=== PATIENT | female | born 1940 | race Caucasian/White ===

== ENCOUNTER 2017-09-01 08:56 | Inpatient (IN) | payer MEDICARE, OTHER ==
[2017-09-01] MEDS ORDERED: Morphine VIAL* 4 MG/ML VIAL (1 ml vial) IV ONE ×2 (09:23→11:37)
[2017-09-01] MEDS ORDERED: Metoclopramide IV* 5 MG/ML 2 ML VIAL IV ONE (09:28)
--- NOTE | 2017-09-01 10:05 | RAD ---
HISTORY: Severe back pain, fall COMPARISONS: None TECHNIQUE: Multiple contiguous axial CT scans were obtained of the thoracic and lumbar spine without intravenous contrast, with coronal and sagittal multiplanar reformations. FINDINGS: SPINAL CANAL: Evaluation of the central canal is limited on CT technique; however, there is no obvious canalicular mass or epidural hemorrhage. ALIGNMENT: The alignment is normal. VERTEBRAL BODIES: There is mild depression of superior endplate of L1 with minimal osseous retropulsion lucent line paralleling the superior endplate consistent with an acute/subacute compression fracture. There is diffuse osteopenia. There is multilevel anterolateral marginal osteophyte formation. JOINTS: There is osteoarthritis of the costovertebral articulations and of the facet joints of the lumbar spine.. MUSCULATURE: Unremarkable INTERVERTEBRAL DISCS: There is diffuse loss of intervertebral disc height throughout the spine. AXIAL IMAGES: There are multilevel calcified disc protrusion versus posterior osteophytes of the mid third of the thoracic spine. There is a broad-based disc bulge at L2-L3. There is no osseous neural foraminal area or central canal stenosis. At L3-L4, there is broad-based disc bulge. There is mild narrowing of central canal. At L4-L5, there is broad-based disc bulge with mild to moderate narrowing of the central canal. L5-S1, there is severe left and mild right neuroforaminal narrowing. There is no osseous central canal stenosis. SOFT TISSUES: There is atherosclerosis of the aorta. OTHER: None IMPRESSION: 1. ACUTE/SUBACUTE COMPRESSION FRACTURE OF L1 WITHOUT OSSEOUS RETROPULSION. 2. OSTEOPENIA. 3. DEGENERATIVE DISC DISEASE AND OSTEOARTHRITIS, DESCRIBED ABOVE.
[2017-09-01 11:14] LABS: Hematocrit 41 % (35-47); Hemoglobin 14.1 g/dl (12.0-16.0); Mean Corpuscular HGB Conc 34 g/dl (31-36); Mean Corpuscular Hemoglobin 32 pg (27-31); Mean Corpuscular Volume 94 fL (80-97); Mean Platelet Volume 6.7 um3 (7.4-10.4); Platelet Count 171 10^3/ul (150-450); Red Blood Count 4.39 10^6/ul (4.0-5.4); Red Cell Distribution Width 14 % (10.5-15); White Blood Count 6.6 10^3/ul (3.5-10.8)
--- NOTE | 2017-09-01 11:14 | ED ---
Back Pain - HPI Summary HPI Summary: Patient is a 77-year-old female with a history of mid and low back pain which is chronic. Also history of right hip pain. She has been seeing a physician for steroid injections of the back and has an appointment tomorrow for a steroid injection of the hip. However 3 nights ago she presented to sit down and fell off the chair resulting in worsening back pain. Tonight she states upon awakening this morning she was unable to ambulate and endorses 10/10 back pain over the past 3 days. She has needed the help of her daughter at home. - History of Current Complaint Chief Complaint: EDBackInjuryPain Stated Complaint: LOW BACK AND HIP PAIN Time Seen by Provider: 09/01/17 08:58 Hx Obtained From: Patient Onset/Duration: Gradual Onset Onset/Duration: Started Hours Ago Timing: Constant Back Pain Location: Is Discrete @ - low back pain Pain Intensity: 10 - Allergies/Home Medications Allergies/Adverse Reactions: Allergies Allergy/AdvReac Type Severity Reaction Status Date / Time aspirin Allergy Anaphylatic Verified 09/01/17 09:00 Shock Beta-Blockers Allergy Anaphylatic Verified 09/01/17 09:00 (Beta-Adrenergic Bloc Shock NSAIDS (Non-Steroidal Allergy Anaphylatic Verified 09/01/17 09:00 Anti-Inflamma Shock Home Medications: Home Medications Albuterol inh POWDER (NF) [Proair Respiclick] 1 puff INH Q6HR PRN 09/01/17 [ History Confirmed 09/01/17] Anastrozole (NF) [Arimidex (NF)] 1 mg PO QAM 09/01/17 [History Confirmed ] Budesonide/Formote 160/4.5(NF) [Symbicort 160/4.5 (NF)] 2 puff INH BID 09/01/17 [History Confirmed 09/01/17] Calcitriol CAP* [Rocaltrol CAP*] 0.25 mcg PO QAM 09/01/17 [History Confirmed ] Calcium Carbonate [Calcium] 1,000 mg PO QAM 09/01/17 [History Confirmed 09/01/17 ] Cetirizine* [ZyrTEC 10 MG TAB*] 10 mg PO QAM 09/01/17 [History Confirmed ] Fenofibrate(NF) [Tricor(NF)] 145 mg PO QPM 09/01/17 [History Confirmed 09/01/17] Furosemide TAB* [Lasix TAB*] 20 mg PO QAM 09/01/17 [History Confirmed 09/01/17] Levothyroxine TAB* [Synthroid TAB*] 175 mcg PO MOTUWETHFRSA 09/01/17 [History Confirmed 09/01/17] Levothyroxine TAB* [Synthroid TAB*] 350 mcg PO BARRON 09/01/17 [History Confirmed ] Montelukast Sodium TAB* [Singulair TAB*] 10 mg PO DAILY 09/01/17 [History Confirmed 09/01/17] Multivitamins/Minerals TAB* [Theragran/minerals TAB*] 1 tab PO DAILY 09/01/17 [ History Confirmed 09/01/17] [place]-3 Fatty Acids (Nf) [Fish Oil (NF)] 1,000 mg PO DAILY 09/01/17 [History Confirmed 09/01/17] Omeprazole CAP* [Prilosec CAP* 20 MG] 20 mg PO QAM 09/01/17 [History Confirmed 09/01/17] QUEtiapine TAB* [Seroquel 100 MG *] 100 mg PO BEDTIME 09/01/17 [History Confirmed 09/01/17] Ramipril CAP* [Altace CAP*] 1.25 mg PO QAM 09/01/17 [History Confirmed 09/01/17] Sertraline* [Zoloft*] 100 mg PO BID 09/01/17 [History Confirmed 09/01/17] Simvastatin (NF) [Zocor (NF)] 40 mg PO QPM 09/01/17 [History Confirmed 09/01/17] Tiotropium CAP.INH* [Spiriva CAP.INH*] 2 cap.inh INH 1200 09/01/17 [History Confirmed 09/01/17] Zolpidem TAB* [Ambien TAB*] 10 mg PO BEDTIME PRN 09/01/17 [History Confirmed 07/16] busPIRone TAB* [Buspar TAB *] 15 mg PO BID 09/01/17 [History Confirmed 09/01/17] risperiDONE [Risperidone Odt] 0.5 mg PO QAM 09/01/17 [History Confirmed 09/01/17 ] PMH/Surg Hx/FS Hx/Imm Hx Previously Healthy: Yes - she said she is just now - Surgical History Surgery Procedure, Year, and Place: shoulder, hip - Immunization History Hx Pertussis Vaccination: No Immunizations Up to Date: Yes Infectious Disease History: No Infectious Disease History: Denies: Traveled Outside the [place] in Last 30 Days - Social History Occupation: Unemployed Lives: Alone Alcohol Use: None Alcohol Amount: 1-2 drinks/daily Hx Substance Use: No Substance Use Type: Reports: None Smoking Status (MU): Former Smoker Review of Systems Constitutional: Negative Negative: Fever, Chills, Fatigue Negative: Palpitations, Chest Pain Negative: Shortness Of Breath, Cough Genitourinary: Negative Positive: no symptoms reported, see HPI Positive: Arthralgia, Myalgia Skin: Negative Neurological: Negative All Other Systems Reviewed And Are Negative: Yes Physical Exam Triage Information Reviewed: Yes Vital Signs On Initial Exam: Initial Vitals Temp Pulse Resp BP Pulse Ox 96.9 F 102 22 144/91 95 09/01/17 08:57 09/01/17 08:57 09/01/17 08:57 09/01/17 08:57 09/01/17 08:57 Vital Signs Reviewed: Yes Appearance: Positive: Well-Appearing, Well-Nourished Skin: Positive: Warm, Skin Color Reflects Adequate Perfusion Head/Face: Positive: Normal Head/Face Inspection Eyes: Positive: EOMI, MELECIO, Conjunctiva Clear Neck: Positive: Supple, Nontender, No Lymphadenopathy Respiratory/Lung Sounds: Positive: Clear to Auscultation, Breath Sounds Present Cardiovascular: Positive: RRR, Pulses are Symmetrical in both Upper and Lower Extremities Musculoskeletal: Positive: Pain @ - low back pain - acute on chronic Neurological: Positive: Speech Normal Psychiatric: Positive: Normal, Affect/Mood Appropriate AVPU Assessment: Alert Diagnostics - Vital Signs Vital Signs Temp Pulse Resp BP Pulse Ox 09/01/17 10:23 96 146/85 94 09/01/17 10:00 91 91 09/01/17 09:53 91 128/92 91 09/01/17 09:48 93 89 09/01/17 09:32 17 09/01/17 08:57 96.9 F 102 22 144/91 95 - Laboratory Result Diagrams: 09/01/17 10:58 09/01/17 10:58 Lab Statement: Any lab studies that have been ordered have been reviewed, and results considered in the medical decision making process. Back Pain Course/Dx - Course Course Of Treatment: During the course of treatment patient is given for milk grams morphine on arrival and CT thoracic and lumbar obtained. Acute /subacute compression fracture of L1 without osseous retropulsion. Osteopenia. Degenerative disc disease and osteoarthritis, as described above. Discussed results with patient. Patient continues to be unable to ambulate. Given 4 mg morphine again and discussed with hospitalist who agrees to admit due to unable to ambulate. - Diagnoses Provider Diagnoses: L1 vertebral fracture Discharge - Sign-Out/Discharge Documenting (check all that apply): Discharge/Admit/Transfer - Discharge Plan Condition: Stable Disposition: ADMITTED TO [facility] Referrals: Lisandro Hayden MD [Primary Care Provider] - - Billing Disposition and Condition Condition: STABLE Disposition: Admitted to [facility]
[2017-09-01 11:22] LABS: INR 0.88 (0.77-1.02)
[2017-09-01 11:29] LABS: EGFR Non-African American 82.3 (>60)
[2017-09-01] MEDS ORDERED: Ondansetron 40 MG VIAL* 2 MG/ML 20 ML VIAL IV PRN (11:30)
[2017-09-01] MEDS ORDERED: Albuterol 2.5 MG/3 ML NEB.SOL* (0.083%) INH PRN (11:30)
[2017-09-01] MEDS ORDERED: Al Hydrox/Mg Hydrox/Simet LIQ* 30 ML UDC PO PRN (11:30)
[2017-09-01] MEDS ORDERED: Acetaminophen TAB* 325 MG PO PRN (11:30)
[2017-09-01] MEDS ORDERED: NS 0.9% 1000 ML* 1,000 ML IV ONE (11:35)
[2017-09-01] MEDS ORDERED: Cyclobenzaprine TAB* 10 MG PO PRN (11:53)
[2017-09-01] MEDS ORDERED: Levothyroxine TAB* 175 MCG TAB PO SCH (12:00)
[2017-09-01 12:34] LABS: Urine Appearance Clear; Urine Blood Negative (Negative); Urine Color Yellow; Urine Ketones Trace (Negative); Urine Protein Negative (Negative); Urine Specific Gravity 1.011 (1.010-1.030); Urine Urobilinogen Negative (Negative)
[2017-09-01] MEDS: Morphine VIAL* 4 MG/ML VIAL (1 ml vial) IV PRN ×2 (13:44→19:55)
--- NOTE | 2017-09-01 14:10 | HP ---
AMENDED REPORT NOW INCLUDES COSIGNER DESIGNATION - ESIGNED BEFORE ADJUSTMENTS CC: Dr. Hayden; Dr. Nolasco * ADMISSION HISTORY AND PHYSICAL: DATE OF ADMISSION: 09/01/17 PATIENT OF: Mary Palmer MD * (DICTATED BY RANDY MCCRARY) PRIMARY CARE PHYSICIAN: Dr. Hayden. PRIMARY ORTHOPEDICS: Dr. Nolasco from [facility]. CHIEF COMPLAINT: Back pain. HISTORY OF PRESENT ILLNESS: Mrs. Arevalo is a 77-year-old female who has recently moved to [place] about 2 weeks ago after she resides most of her life at [place]. Her unfortunately last March and she moved to live with her daughter and her . She has a past medical history significant for asthma, remote history of breast cancer for which she is status post radiation therapy, lumpectomy, and currently on remission. She also has history of thyroid cancer for which she had a thyroidectomy and currently taking thyroid hormone replacement. She also had multiple history of joint arthritis as well as orthopedic surgeries as well as chronic back pain and sciatica. She presented to the emergency room today after she sustained a fall at home about 3 days ago. She informed me that she was at home and she tripped on her carpet and fell sitting on her back. She denied any head injury, loss of consciousness, syncope, chest pain, or any other associated symptoms. She was able to get up and walk and noticed increased back pain that has gotten progressively worse over the past 3 days. This morning she got up and she noticed increasing back pain and spasm for which it was very difficult to ambulate and she was brought to the emergency room by her daughter for further evaluation. The patient was seen in the emergency room and was given some morphine which seemed to take the edge off her lower back pain. She had a CT scan of the thoracic and lumbar spine that showed evidence of acute to subacute L1 compression fracture without any bony displacement or disk protrusion. Given her ongoing pain and the findings of the CT scan, we were asked to see the patient for further evaluation and to discuss admission for pain control and physical therapy and potentially to discuss placement in the near future. PAST MEDICAL HISTORY: As mentioned above and significant for: 1. Asthma. 2. History of breast cancer for which she had a lumpectomy followed by radiation. 3. She also has history of osteoarthritis. 4. Chronic back pain. 5. Sciatica. 6. Hypothyroidism. 7. Thyroid cancer. 8. Hypertension. 9. History of alcohol abuse versus dependence. 10. Anxiety and depression. 11. It is to be mentioned that the patient has history of psychiatric unit admission on an emergency basis due to issues with family custody situations and that was back in 2010. PAST SURGICAL HISTORY: Significant for: 1. Breast lumpectomy followed by radiation therapy. 2. Thyroidectomy about 3 years ago. 3. Bilateral knee replacement in the remote past. 4. Left hip surgery. 5. Right shoulder surgery. MEDICATIONS: Her current medications at home are multiple includin. Albuterol inhaler powder 1 puff q.6 hours as needed for shortness of breath. 2. Arimidex 1 mg p.o. q.a.m. 3. Symbicort MDI inhaler 2 puffs b.i.d. 4. BuSpar 15 mg p.o. b.i.d. 5. Rocaltrol 0.25 mcg p.o. q.a.m. 6. Calcium carbonate 1000 mg p.o. q.a.m. 7. Zyrtec 10 mg p.o. q.a.m. 8. TriCor 145 mg p.o. q.p.m. 9. Lasix 20 mg p.o. q.a.m. 10. Synthroid 175 mcg tablets p.o. daily, except for Friday she takes 350 mcg. 11. Singulair 10 mg p.o. daily. 12. Multivitamin with minerals 1 tablet p.o. daily. 13. [place]-3 fish oil 1000 mg p.o. daily. 14. Prilosec 20 mg p.o. daily. 15. Seroquel 100 mg p.o. q.h.s. 16. Altace 1.25 mg p.o. q.a.m. 17. Risperidone 0.5 mg p.o. q.a.m. 18. Zoloft 100 mg p.o. b.i.d. 19. Zocor 40 mg p.o. q.p.m. 20. Spiriva inhaler 2 caps inhaled around noon daily. 21. Ambien 10 mg p.o. q.h.s. as needed for insomnia. ALLERGIES: Multiple including ASPIRIN and other NSAIDs as well as BETA- BLOCKERS. FAMILY HISTORY: She denies any family history of coronary artery disease, diabetes, or cancer. SOCIAL HISTORY: The patient used to live alone after her in March and used to reside at [place] and has recently moved to [facility] 2 weeks ago and now lives with her daughter and . Her daughter, Peyton, is the healthcare proxy for decision making. REVIEW OF SYSTEMS: I have reviewed 14-point review of systems and it was all negative except whatever mentioned positive in the above history of present illness. PHYSICAL EXAMINATION GENERAL: She is an elderly female lying comfortable and still on her bed and appears in no acute distress, but in slight discomfort whenever she moves her back. VITAL SIGNS: Revealed blood pressure of 125/92, temperature of 96.9, pulse of 93, and O2 sat of 95% on room air. HEENT: Head is normocephalic, atraumatic. Sclerae anicteric. PERRLA. EOMs intact. Oropharynx is pink and moist with no exudate. NECK: Supple. Trachea midline. No cervical adenopathy noted. There is a horizontal midline scar from prior thyroidectomy, appears to be well healed. There is no cervical adenopathy noted. LUNGS: Clear to auscultation bilaterally. HEART: Regular rate and rhythm. Normal S1 and S2 without rubs, murmurs, or gallops. BACK: Normal curvature. Exam was very limited due to pain, but there is a definite point tenderness along the lower lumbar spine. No ecchymosis or swelling noted. BREASTS: Deferred at this time. ABDOMEN: Soft, nontender, and nondistended. No hernias, masses, or hepatosplenomegaly. RECTAL: Deferred at this time. NEUROLOGIC: Grossly intact. LABORATORY DATA: The patient had CBC revealing white count of 6600, hemoglobin of 14.1, hematocrit 41, and platelets of 171,000. Her chemical panel with sodium of 138, potassium 3.8, chloride 99, CO2 of 27, BUN 27, creatinine 0.7. Her LFTs were essentially within normal limits and C-reactive protein elevated with value of 86. ACCESSORY DIAGNOSTIC DATA: As mentioned above. The patient had a CT scan of the lumbar and thoracic spine that revealed evidence of subacute to acute compression fracture of L1 without any osseous retropulsion as well as degenerative disk disease and osteoarthritis as noted. ASSESSMENT: A 77-year-old female with a complicated past medical history who recently moved to the area approximately 2 weeks ago who has past medical history of asthma, hypertension, thyroid cancer, breast cancer, and osteoporosis as well as psychiatric history including substance abuse in the past as well as anxiety and depression who presented to the emergency room today after she sustained a trip and fall at home about 3 days ago with worsening back pain on top of chronic back pain and sciatica for years. PLAN: 1. Severe back pain secondary to L1 compression fracture. The patient appears to be comfortable at the time of admission. We will continue her pain management with morphine, Percocet and will introduce Flexeril for occasional muscle spasm. She has an element of chronic back pain and sciatica. However, she has been ambulating around until her recent fall with no evidence of weakness or neurological deficits. She informed me that she had an appointment with Dr. Nolasco at [facility] last week and she had her lower back injection with steroids and she was scheduled to see him tomorrow for a hip injection as well. There was no evidence on the CT for any disk protrusion or neurological involvement, but we will keep observing the patient for the time being and possibly request consultation by Neurosurgery for further assessment. 2. Hypertension. We will continue her Lasix and Altace. 3. Hyperlipidemia. We are going to continue her statin therapy as home meds. 4. History of asthma without exacerbation or pneumonia. We will continue her on home puffers and nebulizers including Symbicort and Spiriva and will add albuterol nebulizer on as needed basis. We will also continue her Zyrtec and Singulair. 5. Anxiety and depression. We will continue her risperidone and Zoloft as prescribed. 6. DVT prophylaxis. Given her history of both breast and thyroid cancer as well as her advanced age, the patient scored 5 points making her highest risk. We will cover her with subcu heparin as well as sequential stocking while she is in bed. We will also obtain PT, OT evaluation in the morning for further assessment and to discuss with the case investigator possible placement if indicated. I have discussed the assessment and plans with my attending, Dr. Palmer, who is in agreement and the patient will be admitted to the medical floor for observation tonight. 7. Code status. The patient is a full code at this time. However, she had expressed desire to be DNR and her daughter will obtain DNR paperwork and have discussion with the patient regarding that decision. TIME SPENT: I have spent 60 minutes admitting this patient and greater than 50 % was on [id number] conversation and discussion of plans of care. RANDY MCCRARY [id number]/CPS #: [id number]
[2017-09-01] MEDS: oxyCODONE/Acetamin 5/325 MG* TAB PO PRN ×2 (15:06→21:53)
[2017-09-01] MEDS: Heparin VIAL(*) 5000 UNITS/ML VIAL (FIVE THOUSAND) SUBCUT SCH ×2 (15:08→21:56)
[2017-09-01] MEDS: Atorvastatin* 20 MG TAB PO SCH (17:39)
[2017-09-01] MEDS: FENOFIBRATE 145 MG PO SCH (17:43)
[2017-09-01] MEDS: Tiotropium CAP.INH* CAP.INH/18 MCG (USE ORDER SET !) INH SCH (20:28)
[2017-09-01] MEDS ORDERED: Mometasone/Formoter 200/5 MDI INH SCH (21:00)
[2017-09-01] MEDS: Zolpidem TAB* 10 MG PO PRN (21:54)
[2017-09-01] MEDS: Sertraline* 100 MG TAB PO SCH (21:55)
[2017-09-01] MEDS: busPIRone TAB* 5 MG PO SCH (21:55)
[2017-09-01] MEDS: QUEtiapine TAB* 100 MG PO SCH (21:55)
[2017-09-01] MEDS: Docusate CAP* 100 MG PO SCH (21:56)
[2017-09-01] MEDS: Levothyroxine TAB* 175 MCG TAB PO SCH (23:27)
[2017-09-02] MEDS: Heparin VIAL(*) 5000 UNITS/ML VIAL (FIVE THOUSAND) SUBCUT SCH ×3 (05:17→22:06)
[2017-09-02] MEDS: oxyCODONE/Acetamin 5/325 MG* TAB PO PRN ×3 (07:34→20:10)
[2017-09-02] MEDS: Omeprazole CAP* 20 MG PO SCH (07:35)
[2017-09-02] MEDS: Furosemide TAB* 20 MG PO SCH (07:36)
[2017-09-02] MEDS: Docusate CAP* 100 MG PO SCH ×2 (07:36→20:10)
[2017-09-02] MEDS: Cetirizine* 10 MG TAB PO SCH (07:39)
[2017-09-02] MEDS: Montelukast Sodium TAB* 10 MG PO SCH (07:39)
[2017-09-02] MEDS: Calcium Carbonate TAB* 1250 MG (CALCIUM 500 MG) PO SCH (07:40)
[2017-09-02] MEDS: Calcitriol CAP* 0.25 MCG PO SCH (07:40)
[2017-09-02] MEDS: CMCS Anastrozole (NF) 1 MG TAB PO SCH (07:41)
[2017-09-02] MEDS: busPIRone TAB* 5 MG PO SCH ×2 (08:05→20:12)
[2017-09-02] MEDS: Morphine VIAL* 4 MG/ML VIAL (1 ml vial) IV PRN ×3 (08:09→16:42)
[2017-09-02] MEDS: Sertraline* 100 MG TAB PO SCH ×2 (08:13→20:10)
[2017-09-02] MEDS: RISPERIDONE 0.5 MG PO SCH (08:14)
[2017-09-02] MEDS: Mometasone/Formoter 200/5 MDI INH SCH ×2 (08:51→21:28)
--- NOTE | 2017-09-02 11:48 | PN ---
Subjective Date of Service: 09/02/17 Interval History: Patient seen and examined. States pain is very minimally better, however, she did work with PT today and was able to ambulate with walker. Denies fever, fatigue or chills, no headache, no SOB or chest pain. Objective Active Medications: Acetaminophen (Tylenol Tab*) 650 mg PO Q4H PRN PRN Reason: FEVER/PAIN Al Hydrox/Mg Hydrox/Simethicone (Maalox Plus*) 30 ml PO Q6H PRN PRN Reason: INDIGESTION Albuterol (Ventolin 2.5 Mg/3 Ml Neb.Sommer*) 2.5 mg INH [id number] AWAKE PRN PRN Reason: sob/wheezing Anastrozole (Arimidex (Nf)) 1 mg PO QAM [facility] Last Admin: 09/02/17 07:41 Dose: 1 mg Atorvastatin Calcium (Lipitor*) 20 mg PO QPM [facility] Last Admin: 09/01/17 17:39 Dose: 20 mg Buspirone HCl (Buspar Tab*) 15 mg PO BID [facility] Last Admin: 09/02/17 08:05 Dose: 15 mg Calcitriol (Rocaltrol Cap*) [facility] [facility] [place] [facility] Admin: 09/02/17 07:40 Dose: 0.25 mcg Calcium Carbonate (Calcium Carbonate Tab*) 1,[address] [facility] [place] Last Admin: 09/02/17 07:40 Dose: 1,000 mg Cetirizine HCl (Zyrtec*) 10 mg PO [facility] PRN Reason: Protocol Last Admin: 09/02/17 07:39 Dose: 10 mg Device (Tiotropium Inhaler Device*) 1 each INH 1200 ONE Stop: 09/02/17 12:01 Docusate Sodium (Colace Cap*) 100 mg PO BID [facility] Last Admin: 09/02/17 07:36 Dose: 100 mg Furosemide (Lasix Tab*) 20 mg PO QAM [facility] Last Admin: 09/02/17 07:36 Dose: 20 mg Heparin Sodium (Porcine) (Heparin Vial(*)) 5,000 units SUBCUT Q8HR [facility] Last Admin: 09/02/17 05:17 Dose: 5,000 units Levothyroxine Sodium (Synthroid Tab*) 175 mcg PO MoTuWeThFrSa@0000 [facility] Last Admin: 09/01/17 23:27 Dose: 175 mcg Magnesium Hydroxide (Milk Of Magnesia Liq*) 30 ml PO Q4H PRN PRN Reason: CONSTIPATION Mometasone Furoate/Formoterol Fumar (Dulera 200/5 Mdi*) 2 puff INH BID [facility] Last Admin: 09/02/17 08:51 Dose: 2 puff Montelukast Sodium (Singulair Tab*) 10 mg PO DAILY [facility] Last Admin: 09/02/17 07:39 Dose: 10 mg Morphine Sulfate (Morphine Vial*) 2 mg IV Q1H PRN PRN Reason: PAIN Last Admin: 09/02/17 10:09 Dose: 2 mg (Fenofibrate(Nf) [ Tricor(Nf)] 145 Mg)* Non-Formulary Med* 145 mg PO QPM [facility] Last Admin: 09/01/17 17:43 Dose: Not Given Risperidone [ Risperidone Odt] 0.5 Mg) *Non Formulary Med* 0.5 mg PO QAM [facility] Last Admin: 09/02/17 08:14 Dose: Not Given Omeprazole (Prilosec Cap*) 20 mg PO 0730 [facility] Last Admin: 09/02/17 07:35 Dose: 20 mg Ondansetron HCl (Zofran 40 Mg Vial*) 4 mg IV Q4H PRN PRN Reason: NAUSEA/VOMITING Oxycodone/Acetaminophen (Percocet 5/325 Tab*) 2 tab PO Q6H PRN PRN Reason: Pain Last Admin: 09/02/17 07:34 Dose: 2 tab Quetiapine Fumarate (Seroquel Tab*) 100 mg PO BEDTIME [facility] Last Admin: 09/01/17 21:55 Dose: 100 mg Ramipril (Altace Cap*) 1.25 mg PO QAM [facility] Sertraline HCl (Zoloft*) 100 mg PO BID [facility] Last Admin: 09/02/17 08:13 Dose: 100 mg Tiotropium [place] (Spiriva Cap.Inh*) 1 cap INH 1200 [facility] Last Admin: 09/01/17 20:28 Dose: Not Given Zolpidem Tartrate (Ambien Tab*) 10 mg PO BEDTIME PRN PRN Reason: SLEEP Last Admin: 09/01/17 21:54 Dose: 10 mg Vital Signs - 8 hr 09/02/17 09/02/17 09/02/17 03:47 07:19 07:34 Temperature 98.0 F 98.7 F Pulse Rate 89 80 Respiratory 16 16 16 Rate Blood Pressure 124/62 112/86 (mmHg) O2 Sat by Pulse 89 92 Oximetry 09/02/17 09/02/17 09/02/17 08:00 08:09 08:18 Temperature Pulse Rate Respiratory 18 16 Rate Blood Pressure (mmHg) O2 Sat by Pulse 95 Oximetry 09/02/17 09/02/17 09/02/17 08:53 09:05 09:06 Temperature Pulse Rate 72 Respiratory 14 17 19 Rate Blood Pressure (mmHg) O2 Sat by Pulse 90 Oximetry 09/02/17 09/02/17 10:09 10:57 Temperature Pulse Rate Respiratory 17 17 Rate Blood Pressure (mmHg) O2 Sat by Pulse Oximetry Oxygen Devices in Use Now: None Appearance: Alert, NAD Eyes: No Scleral Icterus, PERRLA Ears/Nose/Mouth/Throat: NL Teeth, Lips, Gums, Mucous Membranes Moist Neck: NL Appearance and Movements; NL JVP, Trachea Midline Respiratory: Symmetrical Chest Expansion and Respiratory Effort, Clear to Auscultation Cardiovascular: NL Sounds; No Murmurs; No JVD, RRR Abdominal: NL Sounds; No Tenderness; No Distention Extremities: No Edema, No Clubbing, Cyanosis, - - pain to palpation lower back radiating to right hip and groin Skin: No Rash or Ulcers Neurological: Alert and Oriented x 3, NL Sensation Nutrition: Taking PO's Result Diagrams: 09/01/17 10:58 09/01/17 10:58 Diagnostic Imaging: Patient Name: CARMITA GUERIN Medical Record#: [id number] Ordering Physician: Yina PADILLA Acct.#: [id number] : 1940 Age: 77 Sex: F Location: EMERGENCY DEPARTMENT Exam Date: 09/01/17921 ADM Status: REG ER Order Information: CT SPINE LUMBAR W/O Accession Number: [id number] CPT: 09057 HISTORY: Severe back pain, fall COMPARISONS: None TECHNIQUE: Multiple contiguous axial CT scans were obtained of the thoracic and lumbar spine without intravenous contrast, with coronal and sagittal multiplanar reformations. FINDINGS: SPINAL CANAL: Evaluation of the central canal is limited on CT technique; however, there is no obvious canalicular mass or epidural hemorrhage. ALIGNMENT: The alignment is normal. VERTEBRAL BODIES: There is mild depression of superior endplate of L1 with minimal osseous retropulsion lucent line paralleling the superior endplate consistent with an acute/subacute compression fracture. There is diffuse osteopenia. There is multilevel anterolateral marginal osteophyte formation. JOINTS: There is osteoarthritis of the costovertebral articulations and of the facet joints of the lumbar spine.. MUSCULATURE: Unremarkable INTERVERTEBRAL DISCS: There is diffuse loss of intervertebral disc height throughout the spine. AXIAL IMAGES: There are multilevel calcified disc protrusion versus posterior osteophytes of the mid third of the thoracic spine. There is a broad-based disc bulge at L2-L3. There is no osseous neural foraminal area or central canal stenosis. At L3-L4, there is broad-based disc bulge. There is mild narrowing of central canal. At L4-L5, there is broad-based disc bulge with mild to moderate narrowing of the central canal. L5-S1, there is severe left and mild right neuroforaminal narrowing. There is no osseous central canal stenosis. SOFT TISSUES: There is atherosclerosis of the aorta. OTHER: None IMPRESSION: 1. ACUTE/SUBACUTE COMPRESSION FRACTURE OF L1 WITHOUT OSSEOUS RETROPULSION. 2. OSTEOPENIA. 3. DEGENERATIVE DISC DISEASE AND OSTEOARTHRITIS, DESCRIBED ABOVE. <Electronically signed by Felice Wakefield MD in [place]> 09/01/17 1002 Dictated By: Felice Wakefield MD Dictated Date/Time: 09/01/17 1002 Transcribed Date/Time: 09/01/17 0958 Copy to: 1 of 2 Assess/Plan/Problems-Billing Assessment: This is a 77 year old female patient with longstanding history of OA and osteoporosis that presents with fall, intractable back pain and acute on subacute L1 compression fracture. - Patient Problems (1) Intractable low back pain Code(s): M54.5 - LOW BACK PAIN SNOMED Code(s): 73247601724780364 Comment: - 2/2 osteoporosis with acute on subacute compression fx L1 - Scans as above - Continue multi-modal pain regimen, PT/OT (2) Hypertension Code(s): I10 - ESSENTIAL (PRIMARY) HYPERTENSION SNOMED Code(s): 92002091 Comment: - Continue lasix (3) History of depression Code(s): Z86.59 - PERSONAL HISTORY OF OTHER MENTAL AND BEHAVIORAL DISORDERS SNOMED Code(s): 642803740 Comment: - continue behavioral meds, mood stable (4) History of breast cancer Code(s): Z85.3 - PERSONAL HISTORY OF MALIGNANT NEOPLASM OF BREAST SNOMED Code( s): 970154023 Comment: - Continue anastrazole (5) Hyperlipidemia Code(s): E78.5 - HYPERLIPIDEMIA, UNSPECIFIED SNOMED Code(s): 52767816 Comment: - Continue statin (6) Hypothyroid Code(s): E03.9 - HYPOTHYROIDISM, UNSPECIFIED SNOMED Code(s): 78809051 Comment: - Continue synthroid (7) DVT (deep venous thrombosis) Code(s): I82.409 - ACUTE EMBOLISM AND THOMBOS UNSP DEEP VN UNSP LOWER EXTREMITY SNOMED Code(s): 097984481 Comment: - HSQ (8) Full code status Code(s): Z78.9 - OTHER SPECIFIED HEALTH STATUS SNOMED Code(s): 237168178 Status and Disposition: remain inpatient for pain control and gait support
[2017-09-02] MEDS ORDERED: Spiriva Inhaler DEVICE* 1 EACH DEVICE INH ONE (12:00)
[2017-09-02] MEDS: Magnesium Hydroxide LIQ* 30 ML UDC PO PRN (13:42)
[2017-09-02] MEDS: Ramipril CAP* 1.25 MG PO SCH (13:43)
[2017-09-02] MEDS: Tiotropium CAP.INH* CAP.INH/18 MCG (USE ORDER SET !) INH SCH (14:15)
[2017-09-02] MEDS: Atorvastatin* 20 MG TAB PO SCH (17:35)
[2017-09-02] MEDS: FENOFIBRATE 145 MG PO SCH (17:39)
[2017-09-02] MEDS: QUEtiapine TAB* 100 MG PO SCH (20:12)
[2017-09-02] MEDS: Zolpidem TAB* 10 MG PO PRN (20:12)
[2017-09-02] MEDS: Levothyroxine TAB* 175 MCG TAB PO SCH (23:30)
[2017-09-03] MEDS: oxyCODONE/Acetamin 5/325 MG* TAB PO PRN ×4 (03:05→20:43)
[2017-09-03] MEDS: Heparin VIAL(*) 5000 UNITS/ML VIAL (FIVE THOUSAND) SUBCUT SCH ×3 (05:25→21:56)
[2017-09-03] MEDS: Mometasone/Formoter 200/5 MDI INH SCH ×2 (08:12→20:18)
[2017-09-03] MEDS: Furosemide TAB* 20 MG PO SCH (09:04)
[2017-09-03] MEDS: Omeprazole CAP* 20 MG PO SCH (09:04)
[2017-09-03] MEDS: Sertraline* 100 MG TAB PO SCH ×2 (09:04→20:47)
[2017-09-03] MEDS: Calcitriol CAP* 0.25 MCG PO SCH (09:05)
[2017-09-03] MEDS: Cetirizine* 10 MG TAB PO SCH (09:05)
[2017-09-03] MEDS: Docusate CAP* 100 MG PO SCH ×2 (09:05→20:47)
[2017-09-03] MEDS: Montelukast Sodium TAB* 10 MG PO SCH (09:05)
[2017-09-03] MEDS: CMCS Anastrozole (NF) 1 MG TAB PO SCH (09:05)
[2017-09-03] MEDS: busPIRone TAB* 5 MG PO SCH ×2 (09:05→20:47)
[2017-09-03] MEDS: Ramipril CAP* 1.25 MG PO SCH (09:05)
[2017-09-03] MEDS: Magnesium Hydroxide LIQ* 30 ML UDC PO PRN (09:06)
[2017-09-03] MEDS: Calcium Carbonate TAB* 1250 MG (CALCIUM 500 MG) PO SCH (09:08)
[2017-09-03] MEDS: RISPERIDONE 0.5 MG PO SCH (09:09)
[2017-09-03] MEDS ORDERED: CMCS:Fenofibrate(NF) 145 MG TAB PO SCH (09:42)
--- NOTE | 2017-09-03 10:09 | PN ---
Subjective Date of Service: 09/03/17 Interval History: Patient seen and examined. Feeling a little better today. States at about 2am, pain increased significantly, but she is doing better now. Would like to attempt to shower with assistance and shower chair to see if she can function with her ADLs in anticipation of discharge. Denies fever, fatigue, chills or headache. Had BM, no urinary complaints. Objective Active Medications: Acetaminophen (Tylenol Tab*) 650 mg PO Q4H PRN PRN Reason: FEVER/PAIN Al Hydrox/Mg Hydrox/Simethicone (Maalox Plus*) 30 ml PO Q6H PRN PRN Reason: INDIGESTION Albuterol (Ventolin 2.5 Mg/3 Ml Neb.Sommer*) 2.5 mg INH [id number] AWAKE PRN PRN Reason: sob/wheezing Anastrozole (Arimidex (Nf)) 1 mg PO QAM [facility] Last Admin: 09/03/17 09:05 Dose: 1 mg Atorvastatin Calcium (Lipitor*) 20 mg PO QPM [facility] Last Admin: 09/02/17 17:35 Dose: 20 mg Buspirone HCl (Buspar Tab*) 15 mg PO BID [facility] Last Admin: 09/03/17 09:05 Dose: 15 mg Calcitriol (Rocaltrol Cap*) 0.25 mcg PO QAM [facility] Last Admin: 09/03/17 09:05 Dose: 0.25 mcg Calcium Carbonate (Tums*) 1,000 mg PO QAM [facility] Cetirizine HCl (Zyrtec*) 10 mg PO QAM [facility] PRN Reason: Protocol Last Admin: 09/03/17 09:05 Dose: 10 mg Docusate Sodium (Colace Cap*) 100 mg PO BID [facility] Last Admin: 09/03/17 09:05 Dose: 100 mg Fenofibrate (Tricor(Nf)) 145 mg PO QPM [facility] Furosemide (Lasix Tab*) 20 mg PO QAM [facility] Last Admin: 09/03/17 09:04 Dose: 20 mg Heparin Sodium (Porcine) (Heparin Vial(*)) 5,000 units SUBCUT Q8HR [facility] Last Admin: 09/03/17 05:25 Dose: 5,000 units Levothyroxine Sodium (Synthroid Tab*) 175 mcg PO MoTuWeThFrSa@0000 [facility] Last Admin: 09/02/17 23:30 Dose: 175 mcg Magnesium Hydroxide (Milk Of Magnesia Liq*) 30 ml PO Q4H PRN PRN Reason: CONSTIPATION Last Admin: 09/03/17 09:06 Dose: 30 ml Mometasone Furoate/Formoterol Fumar (Dulera 200/5 Mdi*) 2 puff INH BID [facility] Last Admin: 09/03/17 08:12 Dose: 2 puff Montelukast Sodium (Singulair Tab*) 10 mg PO DAILY [facility] Last Admin: 09/03/17 09:05 Dose: 10 mg Morphine Sulfate (Morphine Vial*) 2 mg IV Q1H PRN PRN Reason: PAIN Last Admin: 09/02/17 16:42 Dose: 2 mg Omeprazole (Prilosec Cap*) 20 mg PO 0730 [facility] Last Admin: 09/03/17 09:04 Dose: 20 mg Oxycodone/Acetaminophen (Percocet 5/325 Tab*) 2 tab PO Q6H PRN PRN Reason: Pain Last Admin: 09/03/17 09:04 Dose: 2 tab Quetiapine Fumarate (Seroquel Tab*) 100 mg PO BEDTIME [facility] Last Admin: 09/02/17 20:12 Dose: 100 mg Ramipril (Altace Cap*) 1.25 mg PO QAM [facility] Last Admin: 09/03/17 09:05 Dose: 1.25 mg Risperidone (Risperdal) 0.5 mg PO QAM [facility] Sertraline HCl (Zoloft*) 100 mg PO BID [facility] Last Admin: 09/03/17 09:04 Dose: 100 mg Tiotropium [place] (Spiriva Cap.Inh*) 1 cap INH 1200 [facility] Last Admin: 09/02/17 14:15 Dose: 1 cap Zolpidem Tartrate (Ambien Tab*) 10 mg PO BEDTIME PRN PRN Reason: SLEEP Last Admin: 09/02/17 20:12 Dose: 10 mg Vital Signs - 8 hr 09/03/17 09/03/17 09/03/17 03:05 03:25 05:28 Temperature 98.1 F Pulse Rate 82 Respiratory 22 16 18 Rate Blood Pressure 119/57 (mmHg) O2 Sat by Pulse 93 Oximetry 09/03/17 09/03/17 09/03/17 07:11 08:13 09:04 Temperature 97.6 F Pulse Rate 84 Respiratory 15 14 18 Rate Blood Pressure 123/64 (mmHg) O2 Sat by Pulse 92 Oximetry Oxygen Devices in Use Now: None Appearance: alert, NAD Eyes: No Scleral Icterus, PERRLA Ears/Nose/Mouth/Throat: NL Teeth, Lips, Gums, Mucous Membranes Moist Neck: NL Appearance and Movements; NL JVP, Trachea Midline Respiratory: Symmetrical Chest Expansion and Respiratory Effort, Clear to Auscultation Cardiovascular: NL Sounds; No Murmurs; No JVD, RRR, No Edema Abdominal: NL Sounds; No Tenderness; No Distention, No Hepatosplenomegaly Extremities: No Edema, No Clubbing, Cyanosis Skin: No Rash or Ulcers Neurological: Alert and Oriented x 3, NL Sensation, NL Muscle Strength and Tone Nutrition: Taking PO's Result Diagrams: 09/01/17 10:58 09/01/17 10:58 Diagnostic Imaging: Patient Name: CARMITA GUERIN Medical Record#: [id number] Ordering Physician: Yina PADILLA Acct.#: [id number] : 1940 Age: 77 Sex: F Location: EMERGENCY DEPARTMENT Exam Date: 09/01/17921 ADM Status: REG ER Order Information: CT SPINE LUMBAR W/O Accession Number: [id number] CPT: 91785 HISTORY: Severe back pain, fall COMPARISONS: None TECHNIQUE: Multiple contiguous axial CT scans were obtained of the thoracic and lumbar spine without intravenous contrast, with coronal and sagittal multiplanar reformations. FINDINGS: SPINAL CANAL: Evaluation of the central canal is limited on CT technique; however, there is no obvious canalicular mass or epidural hemorrhage. ALIGNMENT: The alignment is normal. VERTEBRAL BODIES: There is mild depression of superior endplate of L1 with minimal osseous retropulsion lucent line paralleling the superior endplate consistent with an acute/subacute compression fracture. There is diffuse osteopenia. There is multilevel anterolateral marginal osteophyte formation. JOINTS: There is osteoarthritis of the costovertebral articulations and of the facet joints of the lumbar spine.. MUSCULATURE: Unremarkable INTERVERTEBRAL DISCS: There is diffuse loss of intervertebral disc height throughout the spine. AXIAL IMAGES: There are multilevel calcified disc protrusion versus posterior osteophytes of the mid third of the thoracic spine. There is a broad-based disc bulge at L2-L3. There is no osseous neural foraminal area or central canal stenosis. At L3-L4, there is broad-based disc bulge. There is mild narrowing of central canal. At L4-L5, there is broad-based disc bulge with mild to moderate narrowing of the central canal. L5-S1, there is severe left and mild right neuroforaminal narrowing. There is no osseous central canal stenosis. SOFT TISSUES: There is atherosclerosis of the aorta. OTHER: None IMPRESSION: 1. ACUTE/SUBACUTE COMPRESSION FRACTURE OF L1 WITHOUT OSSEOUS RETROPULSION. 2. OSTEOPENIA. 3. DEGENERATIVE DISC DISEASE AND OSTEOARTHRITIS, DESCRIBED ABOVE. <Electronically signed by Felice Wakefield MD in [place]> 09/01/17 1002 Dictated By: Felice Wakefield MD Dictated Date/Time: 09/01/17 1002 Transcribed Date/Time: 09/01/17 0958 Copy to: 1 of 2 Assess/Plan/Problems-Billing Assessment: This is a 77 year old female patient with longstanding history of OA and osteoporosis that presents with fall, intractable back pain and acute on subacute L1 compression fracture. - Patient Problems (1) Intractable low back pain Code(s): M54.5 - LOW BACK PAIN SNOMED Code(s): 86497619638851255 Comment: - 2/2 osteoporosis with acute on subacute compression fx L1 - Scans as above - Continue multi-modal pain regimen, PT/OT - If progress continues, nicole miller DC in AM in care of family with outpatient f/u with her orthopedist with [facility], highly recommend outpatient PT regimen to aid in fracture healing - Fall precautions (2) Hypertension Code(s): I10 - ESSENTIAL (PRIMARY) HYPERTENSION SNOMED Code(s): 96890128 Comment: - Continue lasix, stable (3) History of depression Code(s): Z86.59 - PERSONAL HISTORY OF OTHER MENTAL AND BEHAVIORAL DISORDERS SNOMED Code(s): 849167072 Comment: - continue behavioral meds, mood stable (4) History of breast cancer Code(s): Z85.3 - PERSONAL HISTORY OF MALIGNANT NEOPLASM OF BREAST SNOMED Code( s): 055402226 Comment: - Continue anastrazole (5) Hyperlipidemia Code(s): E78.5 - HYPERLIPIDEMIA, UNSPECIFIED SNOMED Code(s): 59179330 Comment: - Continue statin (6) Hypothyroid Code(s): E03.9 - HYPOTHYROIDISM, UNSPECIFIED SNOMED Code(s): 01133176 Comment: - Continue synthroid (7) DVT (deep venous thrombosis) Code(s): I82.409 - ACUTE EMBOLISM AND THOMBOS UNSP DEEP VN UNSP LOWER EXTREMITY SNOMED Code(s): 764546261 Comment: - HSQ (8) Full code status Code(s): Z78.9 - OTHER SPECIFIED HEALTH STATUS SNOMED Code(s): 889744013 Status and Disposition: Since patient plan is to go home as opposed to short term rehab, would be safer to DC in am with [facility] and in home PT plan, as she is high risk for falls and further fracture. Patient agreeable.
[2017-09-03] MEDS ORDERED: Lidocaine PATCH 5%* 1 PATCH TRANSDERM SCH (11:00)
[2017-09-03] MEDS: Calcium Carbonate CHEW TAB* 500 MG (TUMS) PO SCH (11:01)
[2017-09-03] MEDS: Morphine VIAL* 4 MG/ML VIAL (1 ml vial) IV PRN (12:20)
[2017-09-03] MEDS: Tiotropium CAP.INH* CAP.INH/18 MCG (USE ORDER SET !) INH SCH (12:44)
[2017-09-03] MEDS: Atorvastatin* 20 MG TAB PO SCH (17:30)
[2017-09-03] MEDS: Zolpidem TAB* 10 MG PO PRN (20:47)
[2017-09-03] MEDS: QUEtiapine TAB* 100 MG PO SCH (20:48)
[2017-09-03] MEDS ORDERED: Lidocaine Patch REMOVE* 1 NOTE MISC SCH (21:00)
[2017-09-04] MEDS: Morphine VIAL* 4 MG/ML VIAL (1 ml vial) IV PRN
[2017-09-04] MEDS: oxyCODONE/Acetamin 5/325 MG* TAB PO PRN ×2 (04:17→11:28)
[2017-09-04] MEDS: Levothyroxine TAB* 175 MCG TAB PO SCH (06:33)
[2017-09-04] MEDS: Heparin VIAL(*) 5000 UNITS/ML VIAL (FIVE THOUSAND) SUBCUT SCH (06:33)
[2017-09-04] MEDS: Mometasone/Formoter 200/5 MDI INH SCH (09:00)
[2017-09-04] MEDS: Calcium Carbonate CHEW TAB* 500 MG (TUMS) PO SCH (09:25)
[2017-09-04] MEDS: Docusate CAP* 100 MG PO SCH (09:25)
[2017-09-04] MEDS: Sertraline* 100 MG TAB PO SCH (09:25)
[2017-09-04] MEDS: Cetirizine* 10 MG TAB PO SCH (09:25)
[2017-09-04] MEDS: Omeprazole CAP* 20 MG PO SCH (09:25)
[2017-09-04] MEDS: Montelukast Sodium TAB* 10 MG PO SCH (09:25)
[2017-09-04] MEDS: busPIRone TAB* 5 MG PO SCH (09:25)
[2017-09-04] MEDS: Furosemide TAB* 20 MG PO SCH (09:25)
[2017-09-04] MEDS: CMCS Anastrozole (NF) 1 MG TAB PO SCH (09:26)
[2017-09-04] MEDS: Calcitriol CAP* 0.25 MCG PO SCH (09:26)
[2017-09-04] MEDS: Ramipril CAP* 1.25 MG PO SCH (09:27)
[2017-09-04] MEDS: Tiotropium CAP.INH* CAP.INH/18 MCG (USE ORDER SET !) INH SCH (12:11)
[2017-09-04 13:23] VITALS: BP 133/64
--- NOTE | 2017-09-05 07:54 | DS ---
CC: Dr. Hayden.* DISCHARGE SUMMARY: DATE OF ADMISSION: 09/01/17 DATE OF DISCHARGE: 09/04/17 PRIMARY CARE PROVIDER: Lisandro Hayden MD ATTENDING FOR THIS ADMISSION: Mary Palmer MD MY ATTENDING FOR TODAY: Allan Peace MD * (DICTATED BY DEWAYNE SUN NP) HOSPITAL COURSE: This is a 77-year-old female patient who came to the emergency department on the evening of 09/01/17 with a report of traumatic fall. The patient states she sustained the injury approximately 3 days prior. She states that she had a mechanical fall secondary to a trip over carpet. She fell backwards on to her back side and lower back. She denied any head injury of loss of consciousness or any further prodromal symptoms prior to the event. The patient was taking Tylenol at home for couple of days. The pain became progressively worse until she felt coming to the emergency department to be evaluated would be appropriate. In the ED, she had some imaging of her lower back. Imaging showed an acute on subacute compression fracture at the L1 vertebrae without osseous retropulsion, some diffuse osteopenia and degenerative disk disease with arthritis. The patient was admitted for compression fracture. She was given pain medication. She was unable to ambulate in the ER, so she was initially admitted to the observation. The patient received pain medication and physical therapy. She slowly made progress and showed no neurologic compromise. As of last evening, she was much more comfortable and able to perform some ADLs, stand and transfer assist with a walker and is feeling much more comfortable. Also of significant note, the patient was scheduled, because of her arthritis, to have an injection of the right hip with her orthopod tomorrow, as such she will discharged today and to follow up with her orthopedist for her scheduled hip injection tomorrow. REVIEW OF SYSTEMS: Today, the patient is stating her back is sore, but the pain is well tolerated with current pain mediation regimen. She denies any chest pain, no shortness of breath, no nausea, no vomiting, no urinary complaints. Some general arthralgias and myalgias that are normally at her baseline and no further constitutional complaints. PHYSICAL EXAMINATION: The patient is alert. No acute distress. Well appearing. Vital Signs: Her blood pressure 104/64, heart rate 72, respiratory rate 18, O2 saturation 93% on room air with a temperature of 98.3. HEENT: The patient is atraumatic, normocephalic. PERRLA with nonicteric sclerae. Neck: Supple, nontender. No JVD noted. No carotid bruit auscultated. No thyromegaly noted. The patient does have a well-approximated scar from thyroidectomy. Cardiovascular: S1, S2 present. No murmurs, gallops or rubs noted. Rate and rhythm are regular. Lungs are clear bilaterally at the apices with no wheezing, rhonchi or rales. Mildly diminished at the bases. She has good air entry. Abdomen: Soft, nontender. Nondistended. Positive bowel sounds all 4 quadrants. No organomegaly noted. : Deferred. Musculoskeletal : There is no clubbing, no cyanosis and no edema. She has point tenderness over the lower lumbar region radiating down to the right hip and groin with mild palpation. She has +2 distal pulses palpable. She has a moderately steady gait with some assistive device. She is using a rollator walker. Gross motor and sensation are intact, although she is guarding some pain. Neurologic: Grossly intact with no focalities noted. Psychiatric: She is cooperative and appropriate. LABORATORY DATA: WBC is 6.6, RBC is 4.39, hemoglobin 14.4, hematocrit 41, platelets 171. Sodium 138, potassium 3.8, chloride 99, CO2 of 27, BUN 27, creatinine 0.69, GFR is 82.3, glucose 91, lactic acid 0.6, calcium 8.9, bilirubin 0.80, AST 17, ALT 18, alk-phos 29, troponin is negative at 0.01, CRP is 86.1. Total protein 7.0, albumin 4.0, globulin 3.0. Urinalysis: Negative for any acute infectious process. INR is 0.88. IMAGING: CAT scan of the lumbar spine shows acute/subacute compression fracture of L1 without osseous retropulsion, osteopenia, degenerative disk disease and osteoarthritis as described in the body of the CAT scan document. Thoracic CT with no further findings than what is described on the lumbar CT. DISCHARGE DIAGNOSES: 1. Acute on subacute compression fracture of L1. 2. Intractable low back pain. 3. History of hypertension. 4. History of depression, stable. 5. History of breast cancer in remission. 6. Hyperlipidemia stable. 7. Hypothyroidism, secondary to thyroidectomy stable. 8. Osteoarthritis of the right hip, at baseline. MEDICATION AT DISCHARGE: Include: 1. Zolpidem 10 mg at bedtime as needed. 2. Seroquel 100 mg at bedtime. 3. Singulair 10 mg daily. 4. Simvastatin 40 mg daily. 5. Fenofibrate 145 mg in the evening. 6. Spiriva 2 caps inhaled daily. 7. Albuterol 1 puff q.6 hours as needed. 8. Symbicort 2 puffs inhaled two times a day. 9. Levothyroxine 350 mcg in the morning on every other day and then 175 mcg alternating. 10. Risperidone 0.5 mg in the morning. 11. Anastrozole 1 mg daily. 12. Multivitamin 1 daily. 13. Zyrtec 10 mg daily. 14. Calcium carbonate 1000 mg daily. 15. Omeprazole 20 mg daily. 16. Calcitriol 0.25 mcg daily. 17. Ramipril 1.25 mg daily. 18. Sertraline 100 mg two times a day. 19. Lasix 20 mg daily. 20. BuSpar 15 mg 3 times a day. 21. Fish oil 1000 mg daily. 22. Percocet 2 tablets q.6 hours as needed. 23. Milk of magnesia 30 mL q.4 hours as needed. 24. Lidoderm patch x2 to lower back and hip one patch daily. 25. Docusate 100 mg 2 times a day. 26. Flexeril 10 mg 2 times a day as needed. 27. Tylenol 650 mg q. 4 hours as needed. DISPOSITION: The patient was evaluated by physical therapy. She is fairly independent and able to transfer on her own. She expressed her wish to be discharged to home in the care of her daughter as opposed to rehab. She will be discharged this afternoon. She does have assistive devices as needed. Pain medication has been sent to her pharmacy. FOLLOWUPS: The patient should followup with Dr. Hayden in the next 4 to 7 days and with her orthopedist at [facility], Friday09/05/17 for her scheduled injection for the right hip. The patient was discharged in stable condition. All questions were answered. The patient stated her understanding of her followups and medications at the time of discharge. DEWAYNE SUN, PATIENT COORDINATOR FRONT DESK [id number]/[facility] #: [id number] JUVE
== END 2017-09-04 13:05 | disposition home health service (06) | DRG 552 ==
LOC: ED 08:56 → MED 11:30 → OBSVTOIN 09-02 12:00
PROVIDERS: ADMIT Internal Medicine; ATTEND Internal Medicine
DX: S32.019A Unspecified fracture of first lumbar vertebra, initial encounter for closed fracture (principal); W01.0XXA Fall on same level from slipping, tripping and stumbling without subsequent striking against object, initial encounter; G89.29 Other chronic pain; J45.909 Unspecified asthma, uncomplicated; M54.30 Sciatica, unspecified side; E89.0 Postprocedural hypothyroidism; I10 Essential (primary) hypertension; F32.9 Major depressive disorder, single episode, unspecified; F41.9 Anxiety disorder, unspecified; Z96.653 Presence of artificial knee joint, bilateral; M47.816 Spondylosis without myelopathy or radiculopathy, lumbar region; M85.88 Other specified disorders of bone density and structure, other site; M16.11 Unilateral primary osteoarthritis, right hip; E78.5 Hyperlipidemia, unspecified; M81.0 Age-related osteoporosis without current pathological fracture; Z56.0 Unemployment, unspecified; Z72.89 Other problems related to lifestyle; Z87.891 Personal history of nicotine dependence; Z85.3 Personal history of malignant neoplasm of breast; Z92.3 Personal history of irradiation; Z85.850 Personal history of malignant neoplasm of thyroid; Y92.009 Unspecified place in unspecified non-institutional (private) residence as the place of occurrence of the external cause; Z88.8 Allergy status to other drugs, medicaments and biological substances; Z88.6 Allergy status to analgesic agent; Z79.890 Hormone replacement therapy; Z79.52 Long term (current) use of systemic steroids
CPT/HCPCS: 36415; 72128; 72131; 80053; 81003; 83605; 84484; 85027; 85610; 85652; 86140; 94640; 99284; A9270-GY; G0378; G8978-GP-CJ; G8979-GP-CI; G8987-GO-CJ; G8988-GO-CI; J1644; J2270; J2765

== ENCOUNTER 2018-04-03 21:17 | Inpatient (IN) | payer MEDICARE, OTHER ==
--- OUTSIDE RECORDS SUMMARY | 2018-04-03 22:18 | XMS REPORT | Continuity of Care Document ---
:1940 External Reference #:[id number] Bell Care Team Providers Name Role Phone Lisandro Hayden III, MD Primary Care Physician Unavailable Payers Type Date Identification Numbers Payment Provider Subscriber Policy Number: [id number] Medicare Aysha Arevalo PayID: [id number] [address] [place] [address] Effective: 2014 Policy Number: [id number] For Life Aysha Arevalo PayID: [id number] [address] [place] [address] Advance Directives Description No Information Available Problems Date Description Provider Status Onset: 08/28/2017 Essential hypertension Lisandro Hayden M.D. Active Onset: 08/28/2017 Pure hypercholesterolemia Lisandro Hayden M.D. Active Onset: 08/28/2017 Gastroesophageal reflux disease Lisandro Hayden M.D. Active Onset: 08/28/2017 History of malignant neoplasm of Lisandro Hayden M.D. Active thyroid Onset: 08/28/2017 Personal history of primary malignant Lisandro Hayden M.D. Active neoplasm of breast Onset: 08/28/2017 Asthma without status asthmaticus Lisandro Hayden M.D. Active Onset: 08/28/2017 Age-related osteoporosis without Lisandro Hayden M.D. Active current pathological fracture Onset: 08/28/2017 Low back pain Lisandro Hayden M.D. Active Onset: 08/28/2017 Chronic depression Lisandro Hayden M.D. Active Onset: 09/01/2017 Closed fracture of lumbar vertebra RANDY Barrett Active without spinal cord injury Onset: 09/01/2017 Anxiety state Garrett RANDY Haley Active Family History Date Family Member(s) Problem(s) Comments Father due to Suicide () Mother due to Alcohol Related () Siblings 1 1 sister, stage 4 breast cancer. Social History Type Date Description Comments Sex Unknown Marital Status Lives With Daughter Occupation Retired Occupation Nurse ETOH Use Drinks 2 Alcoholic Beverages Per Day Tobacco Use Start: Unknown Patient is a former 1/2 ppd from age 21 to End: Unknown smoker age 49 Recreational Drug Use Denies Drug Use Smoking Status Reviewed: 03/12/18 Patient is a former 1/2 ppd from age 21 to smoker age 49 Exercise Type/Frequency Does not exercise hip replacement in 2017 Allergies, Adverse Reactions, Alerts Date Description Reaction Status Severity Comments 08/28/2017 NSAIDs Active stopped breathing 08/28/2017 Beta Adrenergic Blockers Active 02/09/2018 Aspirin Active stopped breathing Medications Medication Date Status Form Strength Qnty SIG Indications Ordering Provider Benzonatate 03/12 Active Capsules 100mg 30cap 1-2 tab by J20.9 Lisandro EJoanna /2017 s mouth three Jackelyn, times a day M.DJoanna as needed Prednisone 03/12 Active Tablets 20mg 10tab 1 by mouth J45.909 Lisandro EJoanna /2017 s every day Estuardo Hayden Suprep Bowel 02/08 Active Solution 17.5-3.13 1unit take Edwina Prep Kit /2017 -1.6GM/17 s according CRYS Rose 7ML to your physician's instruction s the day before your procedure. split the dose as directed. Fish Oil + D3 Active Capsules 4171-7888 1 by mouth Unknown /0000 mg-Unit every day Buspirone HCL Active Tablets 15mg take one Unknown /0000 tablet by mouth twice a day Sertraline HCL Active Tablets 100mg 1 by mouth Unknown /0000 2 times daily Furosemide Active Tablets 20mg 1 by mouth Unknown /0000 every day Ramipril Active Capsules 1.25mg 1 by mouth Unknown /0000 every day Calcitriol Active Capsules 0.25mcg 1 by mouth Unknown /0000 every day Omeprazole Active Capsules DR 20mg 1 by mouth Unknown /0000 every day Zyrtec Allergy Active Capsules 10mg take one Unknown /0000 tablet by mouth in the evening Risperidone Active Tablets 0.5mg 1 tab by Unknown /0000 mouth every morning Levothyroxine Active Tablets 175mcg one every Unknown Sodium /0000 day 6 days per week, and 2 tablets by mouth on Friday Symbicort Active Aerosol 80-4.5mcg 30.6g 2 puff Lisandro E. /0000 /Act m twice a day Estuardo Hayden Spiriva Respimat Active Aerosol 1.25mcg/A inhale two Unknown [address] ct puffs by mouth at noon Simvastatin Active Tablets 40mg take 1 Unknown /0000 tablet by mouth at bedtime Tricor Active Tablets 145mg 1 by mouth Unknown every day Montelukast Active Tablets 10mg 90tab 1 by mouth Lisandro E. Sodium / s every day Estuardo Hayden Seroquel Active Tablets 100mg take 1 Unknown /0000 tablet once at bedtime Ambien Active Tablets 10mg 30tab take 1/2 to Lisandro E. / s 1 tablet by taylor Hayden M.D. nightly at bedime as needed maximum daily dose of 1 per day Albuterol Active Nebulizer (2.5mg/3M 1 vial via Unknown Sulfate L) 0.083% nebulizer 4 times daily as needed Multi Vitamin Active Tablets 1 by mouth Unknown / every day Calcium Active Tablets 1000mg 1 by mouth Unknown Carbonate / every day Docusate Sodium Active Tablets 100mg take 1 by Unknown /0000 mouth two times a day Tylenol Active Capsules 325mg 2 tablets Unknown /0000 every 4 hours as needed for pain Prolia Active Solution 60mg/ml twice a Unknown / year, last was 01/2018 Tamoxifen Active Tablets 20mg 1 by mouth Unknown Citrate /0000 everyday.. Proair HFA Active Aerosol 108(90Bas 2 puffs by Unknown /0000 e) mouth every mcg/Act 4 hours as needed Tramadol HCL 08/28 Hx Tablets 50mg 40tab 1-2 tablets M54.5 Lisandro E. /2017 s every 6 Jackelyn, - hours as M.DJoanna 12/10 needed /2018 Anastrozole Hx Tablets 1mg Unknown /0000 - 02/04 Cyclobenzaprine Hx Tablets 10mg Take 1 Unknown HCL Tablet By - Mouth Two 02/07 Times Daily as Needed For Spasms Lidocaine Hx Patches 5% Apply 1 Unknown Patch To - Skin On 12/10 Lower Back /2017 And 1 Patch To Skin On Right Hip D Oxycodone-Acetam Hx Tablets 5-325mg 30tab take 2 Lisandro E. inophen s tablets by Jackelyn, - mouth every M.D. 02/04 6 hours as needed for pain; maximum 8 daily Milk Of Magnesia Hx Suspension 400mg/5ML 30ml by Unknown / mouth q4 - hrs as 12/10 Medications Administered in Office Medication Date Status Form Strength Qnty SIG Indications Ordering Provider Foreign Administered Injection Nurse Visit Injection, 018 C Denosumab, 1MG Immunizations CPT Code Status Date Vaccine Lot # [id number] Given 01/13/2018 Fluzone High Dose 73433 Given 03/31/2015 Pneumococcal Conjugate Vaccine 13 Valent For Intramuscular Use 14157 Given 08/10/2004 Pneumonia Vaccine Vital Signs Date Vital Result Comment 03/12/2018 3:49pm Height 62 inches 5'2" Weight 159.00 lb Heart Rate 87 /min BP Systolic Sitting 120 mmHg BP Diastolic Sitting 78 mmHg Body Temperature 98.8 F O2 % BldC Oximetry 95 % BMI (Body Mass Index) 29.1 kg/m2 02/09/2018 10:10am Height 62 inches 5'2" Weight 160.00 lb w/ shoes Heart Rate 100 /min BP Systolic Sitting 120 mmHg BP Diastolic Sitting 78 mmHg BMI (Body Mass Index) 29.3 kg/m2 02/05/2018 10:43am Height 62 inches 5'2" Weight 160.12 lb Heart Rate 72 /min BP Systolic 118 mmHg BP Diastolic 62 mmHg Respiratory Rate 18 /min BMI (Body Mass Index) 29.3 kg/m2 12/11/2017 3:56pm Height 62 inches 5'2" Weight 163.00 lb Heart Rate 86 /min BP Systolic Sitting 110 mmHg BP Diastolic Sitting 72 mmHg O2 % BldC Oximetry 95 % BMI (Body Mass Index) 29.8 kg/m2 09/08/2017 11:39am Height 62 inches 5'2" Weight 161.12 lb Heart Rate 80 /min BP Systolic Lying Down 130 mmHg BP Diastolic Lying Down 78 mmHg O2 % BldC Oximetry 94 % BMI (Body Mass Index) 29.5 kg/m2 08/28/2017 1:20pm Height 62 inches 5'2" Weight 162.00 lb Heart Rate 91 /min BP Systolic Sitting 132 mmHg BP Diastolic Sitting 85 mmHg BMI (Body Mass Index) 29.6 kg/m2 Results Test Date Facility Test Result H/L Range Note Laboratory test 03/03/2018 [facility] Surgical SEE RESULT [address] [place] [address] [phone] Laboratory test 03/03/2018 [facility] C Difficile PCR SEE RESULT [address] [place] [address] [phone] CBC Auto Diff 02/09/2018 [facility] White Blood 3.8 10^3/uL N 3.5-10.[address] [place] [address] [phone] Red Blood Count 4.16 10^6/uL N 4.00-5.40 Hemoglobin 13.0 g/dL N 12.0-16.0 Hematocrit 39 % N 35-47 Mean Corpuscular Volume 94 fL N 80-97 Mean Corpuscular Hemoglobin 31 pg N 27-31 Mean Corpuscular HGB Conc 33 g/dL N 31-36 Red Cell Distribution Width 14 % N 10.5-15 Platelet Count 172 10^3/uL N 150-450 Mean Platelet Volume 7.3 fL Low 7.4-10.4 Abs Neutrophils 2.6 10^3/uL N 1.5-7.7 Abs Lymphocytes 0.7 10^3/uL Low 1.0-4.8 Abs Monocytes 0.4 10^3/uL N 0-0.8 Abs Eosinophils 0 10^3/uL N 0-0.6 Abs Basophils 0 10^3/uL N 0-0.2 Abs Nucleated RBC 0 10^3/uL Granulocyte % 69.8 % N 38-83 Lymphocyte % 19.2 % Low 25-47 Monocyte % 10.7 % High 0-7 Eosinophil % 0.2 % N 0-6 Basophil % 0.1 % N 0-2 Nucleated Red Blood Cells % 0.1 Laboratory test 02/09/2018 [facility] Vitamin B12 714 pg/mL N 180-[address] [place] [address] [phone] Methylmalonic Acid Mma 0.17 nmol/mL <=0.40 4 TSH (Thyroid Stim Horm) 3.99 mcIU/mL N 0.34-5.60 Free T4 (Free Thyroxine) 1.00 ng/dL N 0.61-1.12 Thyroglobulin 02/09/2018 [facility] Thyroglobulin <1.8 IU/mL <4.0 Tumor Marker [address] [place] [address] [phone] Thyroglobulin Tumor Marker <0.1 ng/mL 5 Thyroglobulin Interpretation See Comment 6 Laboratory test 01/08/2018 [facility] TSH (Thyroid 0.93 mcIU/mL N 0.34-5.[address] Stim Horm) [place] [address] [phone] Free T4 (Free Thyroxine) 1.08 ng/dL N 0.61-1.12 Vitamin D Total 25(Oh) 38.5 ng/mL N 20-50 Lipid Profile 10/17/2017 [facility] Triglycerides 123 mg/dL 7 (Trig/Chol/HDL) [address] [place] [address] [phone] Cholesterol 151 mg/dL 8 HDL Cholesterol 63.1 mg/dL 9 LDL Cholesterol 63 mg/dL 10 CBC Auto 10/17/2017 [facility] White Blood 3.4 10^3/uL Low 3.5 -10.8 Diff [address] [place] [address] [phone] Red Blood Count 3.90 10^6/uL Low 4.00-5.40 Hemoglobin 12.3 g/dL N 12.0-16.0 Hematocrit 36 % N 35-47 Mean Corpuscular Volume 93 fL N 80-97 Mean Corpuscular Hemoglobin 32 pg High 27-31 Mean Corpuscular HGB Conc 34 g/dL N 31-36 Red Cell Distribution Width 15 % N 10.5-15 Platelet Count 205 10^3/uL N 150-450 Mean Platelet Volume 7.1 um3 Low 7.4-10.4 Abs Neutrophils 2.2 10^3/uL N 1.5-7.7 Abs Lymphocytes 0.7 10^3/uL Low 1.0-4.8 Abs Monocytes 0.5 10^3/uL N 0-0.8 Abs Eosinophils 0 10^3/uL N 0-0.6 Abs Basophils 0 10^3/uL N 0-0.2 Abs Nucleated RBC 0 10^3/uL Granulocyte % 63.3 % N 38-83 Lymphocyte % 20.8 % Low 25-47 Monocyte % 15.7 % High 0-7 Eosinophil % 0 % N 0-6 Basophil % 0.2 % N 0-2 Nucleated Red Blood Cells % 0.1 Vitamin B12 And 10/17/2017 [facility] Vitamin B12 203 pg/mL N 180-914 11 Folate Serum [address] [place] [address] [phone] Folic Acid (Folate) > 20.00 ng/mL >3.99 Laboratory test 10/17/2017 [facility] Magnesium 1.8 mg/dL Low 1.9-2.7 finding [address] [place] [address] [phone] TSH (Thyroid Stim Horm) 0.01 mcIU/mL Low 0.34-5.60 Vitamin D Total 25(Oh) 56.1 ng/mL High 20-50 Comp Metabolic Panel 10/17/2017 [facility] Sodium 141 mmol/L N 135-145 [address] [place] [address] [phone] Potassium 4.4 mmol/L N 3.5-5.0 Chloride 106 mmol/L N 101-111 Co2 Carbon Dioxide 28 mmol/L N 22-32 Anion Gap 7 mmol/L N 2-11 Glucose 94 mg/dL N 70-100 Blood Urea Nitrogen 22 mg/dL N 6-24 Creatinine 0.69 mg/dL N 0.51-0.95 BUN/Creatinine Ratio 31.9 High 8-20 Calcium 9.0 mg/dL N 8.6-10.3 Total Protein 6.5 g/dL N 6.4-8.9 Albumin 4.0 g/dL N 3.2-5.2 Globulin 2.5 g/dL N 2-4 Albumin/Globulin Ratio 1.6 N 1-3 Total Bilirubin 0.60 mg/dL N 0.2-1.0 Alkaline Phosphatase 42 U/L N 34-104 Alt 17 U/L N 7-52 Ast 23 U/L N 13-39 Egfr Non- 82.3 >60 Egfr 99.6 >60 12 Urinalysis Profile 09/01/2017 [facility] Urine Color Yellow [address] [place] [address] [phone] Urine Appearance Clear Urine Specific Barry 1.011 N 1.010-1.030 Urine pH 5.0 N 5-9 Urine Urobilinogen Negative Negative Urine Ketones Trace Abnormal Negative Urine Protein Negative Negative Urine Leukocytes Negative Negative Urine Blood Negative Negative Urine Nitrite Negative Negative Urine Bilirubin Negative Negative Urine Glucose Negative Negative Inr/Protime 09/01/2017 [facility] Inr 0.88 N 0.77-1.02 [address] [place] [address] [phone] Comp Metabolic 09/01/2017 [facility] Sodium 138 mmol/L Low 139 -145 Panel [address] [place] [address] [phone] Potassium 3.8 mmol/L N 3.5-5.0 Chloride 99 mmol/L Low 101-111 Co2 Carbon Dioxide 27 mmol/L N 22-32 Anion Gap 12 mmol/L High 2-11 Glucose 91 mg/dL N 70-100 Blood Urea Nitrogen 27 mg/dL High 6-24 Creatinine 0.69 mg/dL N 0.51-0.95 BUN/Creatinine Ratio 39.1 High 8-20 Calcium 8.9 mg/dL N 8.6-10.3 Total Protein 7.0 g/dL N 6.4-8.9 Albumin 4.0 g/dL N 3.2-5.2 Globulin 3.0 g/dL N 2-4 Albumin/Globulin Ratio 1.3 N 1-3 Total Bilirubin 0.80 mg/dL N 0.2-1.0 Alkaline Phosphatase 29 U/L Low 34-104 Alt 18 U/L N 7-52 Ast 17 U/L N 13-39 Egfr Non- 82.3 >60 Egfr 105.8 >60 13 Laboratory test 09/01/2017 [facility] C Reactive 86.10 mg/L High < 5.[address] [place] [address] [phone] Troponin-I (TnI) 0.01 ng/mL <0.04 Lactic Acid 0.6 mmol/L N 0.5-2.0 15 CBC No Diff 09/01/2017 [facility] White Blood 6.6 10^3/uL N 3.5-10.[address] [place] [address] [phone] Red Blood Count 4.39 10^6/uL N 4.0-5.4 Hemoglobin 14.1 g/dL N 12.0-16.0 Hematocrit 41 % N 35-47 Mean Corpuscular Volume 94 fL N 80-97 Mean Corpuscular Hemoglobin 32 pg High 27-31 Mean Corpuscular HGB Conc 34 g/dL N 31-36 Red Cell Distribution Width 14 % N 10.5-15 Platelet Count 171 10^3/uL N 150-450 Mean Platelet Volume 6.7 um3 Low 7.4-10.4 Laboratory test 09/01/2017 [facility] Erythrocyte Sed 34 mm/Hr N 0-[address] [place] [address] [phone] 1 SEE RESULT BELOW Name: APOORVAANN HowellAYSHA : [address]: Alex Forbes MD Acct: [id number] Unit: [id number] AGE: 77 Location: ENDO Re03/03/18 SEX: F Status: DEP REF SPEC: [id number] IMMANUEL: 03/03/18-0858 [facility] DR: Alex Forbes MD REQ: [id number] RECD: 03/03/18 STATUS: DEANNE OWEN DR: Lisandro aHyden III, MD _ ORDERED: LEVEL 4/3 FINAL DIAGNOSIS 1. Colon, descending, biopsy: -- Tubular adenoma. -- No high grade dysplasia or malignancy. 2. Colon, hepatic flexure, biopsy: -- Tubular adenoma. -- No high grade dysplasia or malignancy. 3. Colon, rectum, biopsy: -- Hyperplastic polyps. CLINICAL HISTORY Usual bowel habits - every day, no blood POST-OPERATIVE DIAGNOSIS Colonoscopy: to cecum; anastomosis at 20 cm; mild diverticulosis; conclusions : proctitis; diverticulosis; polyps GROSS DESCRIPTION 1. The specimen is received in formalin labeled, Descending Colon Polyp, and consists of a 0.8 x 0.5 x 0.3 cm koch-pink polypoid soft tissue fragment which is inked, bisected and submitted entirely in one cassette. 2. The specimen is received in formalin labeled, Hepatic Flexure Polyp, and consists of a 0.5 x 0.4 x 0.2 cm aggregate of koch-pink irregular to polypoid soft tissue fragments which is submitted entirely in one cassette. CONTINUED ON NEXT PAGE DEPARTMENT OF PATHOLOGY, [address] [place] [address] Rigoberto Rodriguez M.D. Director [facility] # [id number] RUN DATE: 03/04/18 [facility] LAB LIVE PAGE 2 Patient: AYSHA AREVALO [id number] (Continued) GROSS DESCRIPTION (Continued) GROSS DESCRIPTION (Continued) 3. The specimen is received in formalin labeled, Biopsy Rectal Nodules, and consists of a 0.7 x 0.7 x 0.3 cm aggregate of koch-pink irregular to polypoid soft tissue fragments which is submitted entirely in one cassette. Signed by and Reported on: Peyton Deluna MD 03/04/18 1151 END OF REPORT DEPARTMENT OF PATHOLOGY, [address] [place] [address] Rigoberto Rodriguez M.D. Director [facility] # [id number] 2 SEE RESULT BELOW Name: AYSHA AREVALO : [address]: Alex Forbes MD Acct: [id number] Unit: [id number] AGE: 77 Location: ENDO Re03/03/18 SEX: F Status: REG REF SPEC: [id number] IMMANUEL: 03/03/18 [facility] DR: Alex Forbes MD REQ: [id number] RECD: 03/03/18 STATUS: LORIE OWEN DR: Lisandro Hayden III, MD _ SOURCE: STOOL SPDESC: ORDERED: C. diff PCR Procedure Result Reported Site Stool Specimen Description Final 03/03/18- 1136 ML Stool Color Greenish Brown Stool Form Nonformed Stool Consistency Liquid C. difficile PCR Final 03/03/18- 1223 ML Organism 1 027 Presumptive NEGATIVE Organism 2 Toxigenic C.diff NEGATIVE * - [facility] . END OF REPORT DEPARTMENT OF PATHOLOGY, [address] [place] [address] Rigoberto Rodriguez M.D. Director [facility] # [id number] 3 Normal Range 180 to 914 Indeterminate Range 145 to 180 Deficient Range <145 4 ADDITIONAL INFORMATION This test was developed and its performance characteristics determined by [facility] in a manner consistent with CLIA requirements. This test has not been cleared or approved by the U.S. Food and Drug Administration. Test Performed by: [facility] - [facility] [address] [place] [address] 5 REFERENCE VALUE Athyrotic <0.1 Intact Thyroid <=33 6 Thyroglobulin (Tg) levels must be interpreted in the context of TSH levels, serial Tg measurements and radioiodine ablation status. Tg levels <0.1 ng/mL in athyrotic individuals on suppressive therapy indicate a minimal risk (<1-2%) of clinically detectable recurrent papillary/follicular thyroid cancer. ADDITIONAL INFORMATION PLEASE NOTE: Thyroglobulin flagging is based on athyrotic reference values. The thyroglobulin and thyroglobulin antibody testing methods are immunoenzymatic assays manufactured by [employer] and performed on the [employer] DXI 800. Values obtained from different assay methods or kits may be different and cannot be used interchangeably. The results cannot be interpreted as absolute evidence for the presence or absence of malignant disease. Test Performed by: [facility] [address] [place] [address] 7 Desirable: <150 Borderline High: 150-199 High: 200-499 Very High: >500 8 Desirable: <200 Borderline High: 200-239 High: >239 9 Low: <40 Desirable: 40-60 High: >60 10 Desirable: <100 Near Optimal: 100-129 Borderline High: 130-159 High: 160-189 Very High: >189 11 Normal Range 180 to 914 Indeterminate Range 145 to 180 Deficient Range <145 12 Because ethnic data is not always readily available, this report includes an eGFR for both -Americans and non- Americans. The National Kidney Disease Education Program (NKDEP) does not endorse the use of the MDRD equation for patients that are not between the ages of 18 and 70, are , have extremes of body size, muscle mass, or nutritional status, or are non- or non-. According to the National Kidney Foundation, irrespective of diagnosis, the stage of the disease is based on the level of kidney function: Stage Description GFR(mL/min/1.73 m(2)) 1 Kidney damage with normal or decreased GFR 90 2 Kidney damage with mild decrease in GFR 60-89 3 Moderate decrease in GFR 30-59 4 Severe decrease in GFR 15-29 5 Kidney failure <15 (or dialysis) 13 Because ethnic data is not always readily available, this report includes an eGFR for both -Americans and non- Americans. The National Kidney Disease Education Program (NKDEP) does not endorse the use of the MDRD equation for patients that are not between the ages of 18 and 70, are , have extremes of body size, muscle mass, or nutritional status, or are non- or non-. According to the National Kidney Foundation, irrespective of diagnosis, the stage of the disease is based on the level of kidney function: Stage Description GFR(mL/min/1.73 m(2)) 1 Kidney damage with normal or decreased GFR 90 2 Kidney damage with mild decrease in GFR 60-89 3 Moderate decrease in GFR 30-59 4 Severe decrease in GFR 15-29 5 Kidney failure <15 (or dialysis) 14 Acute inflammation: >10.00 15 [place] Severe Sepsis and Septic Shock Management Bundle Measure requires all lactic acids initially measuring >2.0 mmol/L be repeated. 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 D51.3 Other dietary vitamin B12 deficiency anemia Z87.310 Personal history of (healed) osteoporosis fracture M81.0 Age-related osteoporosis w/o current pathological fracture Z85.850 Personal history of malignant neoplasm of thyroid Office Visit 02/05/2018 [facility] Gastroenterology Edwina Z86.010 Personal history 10:00a CRYS Rose of colonic polyps Office Visit 12/11/2017 [facility] Internal Medicine Lisandro Howe I10 Essential 3:40p - Gus Hayden (primary) Estuardo hypertension K21.9 Gastro-esophageal reflux disease without esophagitis M81.0 Age-related osteoporosis w/o current pathological fracture E78.00 Pure hypercholesterolemia, unspecified F34.1 Dysthymic disorder Office Visit 09/08/2017 [facility] Internal Lisandro Howe S32.010A Wedge 11:20a Art Hayden M.D. compression [place] fracture of first lumbar vertebra, init Office Visit 09/04/2017 [facility] F41.9 Anxiety 8:19a Assocmumtaz, disorder, Hospitalists MILITARY TECHNICIAN unspecified S32.010A Wedge compression fracture of first lumbar vertebra, init Office Visit 09/03/2017 [facility] S32.010A Wedge 8:18a Assocmumtaz, compression Hospitalists MILITARY TECHNICIAN fracture of first lumbar vertebra, init F41.9 Anxiety disorder, unspecified Office Visit 09/02/2017 [facility] S32.010A Wedge 8:17a Assocmumtaz, compression Hospitalists MILITARY TECHNICIAN fracture of first lumbar vertebra, init F41.9 Anxiety disorder, unspecified Office Visit 09/01/2017 [facility] S32.010A Wedge 8:17a Assocmumtaz [place] compression Hospitalists fracture of first lumbar vertebra, init F41.9 Anxiety disorder, unspecified Office Visit 08/28/2017 1:20p [facility] Lisandro Howe M54.5 Low back pain Medicine - Estuardo Hayden [place] I10 Essential (primary) hypertension E78.00 Pure hypercholesterolemia, unspecified K21.9 Gastro-esophageal reflux disease without esophagitis Z85.850 Personal history of malignant neoplasm of thyroid Z85.3 Personal history of malignant neoplasm of breast J45.909 Unspecified asthma, uncomplicated M81.0 Age-related osteoporosis w/o current pathological fracture F34.1 Dysthymic disorder Plan of Treatment 03/12/2018 - Lisandro Hayden M.D.J20.9 Acute bronchitis, unspecifiedNew Medication:Benzonatate 100 mg - 1-2 tab by mouth three times a day as meujxbW39.909 Unspecified asthma, uncomplicatedNew Medication:Prednisone 20 mg - 1 by mouth every day
--- NOTE | 2018-04-03 22:55 | ED ---
Shortness of Breath - HPI Summary HPI Summary: This patient is a 77 year old F presenting to [facility] accompanied by her daughter with a chief complaint of persistent cough for the past three weeks that has worsened in the past couple of days with SOB and fever. Patient reports chest pain with cough. Patient reports a history of asthma. - History of Current Complaint Chief Complaint: EDShortnessOfBreath Time Seen by Provider: 04/03/18 22:53 Hx Obtained From: Patient Onset/Duration: Gradual Onset, Lasting Weeks Timing: Constant Dyspnea At: Rest Associated Signs & Symptoms: Cough (Productive), Chest Pain w/Cough - Allergy/Home Medications Allergies/Adverse Reactions: Allergies Allergy/AdvReac Type Severity Reaction Status Date / Time aspirin Allergy Anaphylatic Verified 03/03/18 09:33 Shock Beta-Blockers Allergy Anaphylatic Verified 03/03/18 09:33 (Beta-Adrenergic Bloc Shock NSAIDS (Non-Steroidal Allergy Anaphylatic Verified 03/03/18 09:33 Anti-Inflamma Shock PMH/Surg Hx/FS Hx/Imm Hx Cardiovascular History: Reports: Hx Hypertension Respiratory History: Reports: Hx Asthma Denies: Hx Chronic Obstructive Pulmonary Disease (COPD) Musculoskeletal History: Reports: Hx Osteoporosis, Other Musculoskeletal History Sensory History: Reports: Hx Contacts or Glasses - reading glasses Denies: Hx Hearing Aid, Hx Hearing Problem Opthamlomology History: Reports: Hx Contacts or Glasses - reading glasses Psychiatric History: Reports: Hx Anxiety, Hx Depression - Surgical History Surgery Procedure, Year, and Place: shoulder, hip Infectious Disease History: No Infectious Disease History: Denies: Traveled Outside the [place] in Last 30 Days - Family History Known Family History: Positive: Hypertension - Social History Alcohol Use: Daily Alcohol Amount: one cocktail a day Hx Substance Use: No Substance Use Type: Reports: None Smoking Status (MU): Former Smoker Review of Systems Positive: Fever Positive: Chest Pain Positive: Shortness Of Breath, Cough All Other Systems Reviewed And Are Negative: Yes Physical Exam - Summary Physical Exam Summary: Appearance: mildly distressed with mildly labored breathing Skin: Warm, dry, no obvious rash Eyes: sclera anicteric, no conjunctival pallor ENT: mucous membranes moist, pharynx appears normal Neck: Supple, nontender Respiratory: tachypnea with mildy labored breathing, diffuse expiratory wheezing , rhonchi in right anterior chest Cardiovascular: Normal S1, S2. No murmurs. Normal distal pulses in tibial and radial bilaterally. Abdomen: Soft, nontender, normal active bowel sounds present Musculoskeletal: Normal, Strength/ROM Intact Neurological: A&Ox3, awake and alert, mentation is normal, speech is fluent and appropriate Psychiatric: affect is normal, does not appear anxious or depressed Triage Information Reviewed: Yes Vital Signs On Initial Exam: Initial Vitals Temp Pulse Resp BP Pulse Ox 99.7 F 119 22 113/56 92 04/03/18 21:17 04/03/18 21:17 04/03/18 21:17 04/03/18 21:17 04/03/18 21:17 Vital Signs Reviewed: Yes Diagnostics - Vital Signs Vital Signs Temp Pulse Resp BP Pulse Ox 04/03/18 21:17 99.7 F 119 22 113/56 92 - Laboratory Result Diagrams: 04/03/18 23:16 04/03/18 23:16 Lab Statement: Any lab studies that have been ordered have been reviewed, and results considered in the medical decision making process. - Radiology CXR Radiology Interpretation Completed By: ED Physician Summary of Radiographic Findings: medial segmental infiltrates of right medial lobe Course/Dx - Course Course Of Treatment: 77 year old F presenting to [facility] accompanied by her daughter with a chief complaint of persistent cough for the past three weeks that has worsened in the past couple of days with SOB and fever. Patient reports chest pain with cough. Upon exam patient has mildly labored breathing, diffuse expiratory wheezes, with rhonchi in the right anterior chest. A CXR is indicative of PNA in the right middle lobe. Bloodwork is WNL. Influenza testing is negative. Patient is given nebulizer treatment. Case discussed with hospitalist, Dr. Potter, who agrees to admit. - Diagnoses Provider Diagnoses: Right middle lobe pneumonia - Physician Notifications Discussed Care of Patient With: Henrik Potter - hospitalist Time Discussed With Above Provider: 03:50 Instructed by Provider To: Admit As Inpatient Discharge - Sign-Out/Discharge Documenting (check all that apply): Patient Departure - admit - Discharge Plan Condition: Stable Disposition: ADMITTED TO [facility] Referrals: Lisandro Hayden MD [Primary Care Provider] - - Billing Disposition and Condition Condition: STABLE Disposition: Admitted to [facility] - Attestation Statements Document Initiated by Scribe: Yes Documenting Scribe: Shayy Roetzer Provider For Whom Scribe is Documenting (Include Credential): Harmeet Benitez MD Scribe Attestation: I, Shayy Ulloa, scribed for Harmeet Benitez MD on 04/04/18 at 0510. Scribe Documentation Reviewed: Yes Provider Attestation: The documentation as recorded by the scribe, Shayy Ulloa accurately reflects the service I personally performed and the decisions made by me, Harmeet Benitez MD Status of Scribe Document: Viewed
[2018-04-03] MEDS ORDERED: Albuterol 0.5% CONC NEB.SOL* 5 MG/ML 20 ml BOT INH ONE (22:59)
[2018-04-03] MEDS ORDERED: cefTRIAXone(*) 1 GM in NS 0.9% 50 ML* 50 ML IVPB ONE (23:00)
[2018-04-03] MEDS ORDERED: methylPREDNISolone 125 MG* 2 ML VIAL IV ONE (23:00)
[2018-04-03] MEDS ORDERED: Azithromycin IV(*) 500 MG in NS 0.9% 250 ML* 250 ML IVPB ONE (23:00)
[2018-04-03 23:27] LABS: ABS Basophils 0 10^3/ul (0-0.2); ABS Eosinophils 0 10^3/ul (0-0.6); ABS Lymphocytes 0.8 10^3/ul (1.0-4.8); ABS Monocytes 1.3 10^3/ul (0-0.8); ABS Neutrophils 7.7 10^3/ul (1.5-7.7); ABS Nucleated RBC 0 10^3/ul; Eosinophil % 0 %; Hematocrit 34 % (35-47); Hemoglobin 11.5 g/dl (12.0-16.0); Lymphocyte % 8.5 %; Mean Corpuscular HGB Conc 34 g/dl (31-36); Mean Corpuscular Hemoglobin 31 pg (27-31); Mean Corpuscular Volume 92 fL (80-97); Mean Platelet Volume 7.1 fL (7.4-10.4); Nucleated Red Blood Cells % 0.1; Platelet Count 187 10^3/ul (150-450); Red Blood Count 3.72 10^6/ul (4.00-5.40); Red Cell Distribution Width 14 % (10.5-15); White Blood Count 9.8 10^3/ul (3.5-10.8)
[2018-04-03 23:33] LABS: INR 1.07 (0.77-1.02)
[2018-04-03 23:43] LABS: Albumin 3.9 g/dL (3.2-5.2); Albumin/Globulin Ratio 1.3 (1-3); BUN/Creatinine Ratio 32.2 (8-20); Globulin 2.9 g/dL (2-4); Total Bilirubin 1.1 mg/dL (0.2-1.0); Total Protein 6.8 g/dL (6.4-8.9)
[2018-04-04] MEDS ORDERED: Enoxaparin(*) 40 MG/0.4 ML SYR SUBCUT SCH (05:00)
[2018-04-04] MEDS: Levothyroxine TAB* 175 MCG TAB PO SCH (06:18)
[2018-04-04] MEDS: Omeprazole CAP (NF) 20 MG CAP.DR PO SCH (07:21)
[2018-04-04] MEDS: Mometasone/Formoter 100/5 MDI INH SCH ×2 (08:39→21:08)
[2018-04-04] MEDS ORDERED: Spiriva Inhaler DEVICE* 1 EACH DEVICE INH ONE (09:00)
[2018-04-04] MEDS: Multivitamins/Minerals TAB PO SCH (11:02)
[2018-04-04] MEDS: Sertraline* 100 MG TAB PO SCH ×2 (11:05→21:43)
[2018-04-04] MEDS: Furosemide TAB* 20 MG PO SCH (11:11)
[2018-04-04] MEDS: EPA PO SCH (11:11)
[2018-04-04] MEDS: [UNRECOGNIZED DRUG - OTHER] PO SCH (11:11)
[2018-04-04] MEDS: OMEGA3 PO SCH (11:11)
[2018-04-04] MEDS: VIT D3 PO SCH (11:11)
[2018-04-04] MEDS: DHA PO SCH (11:11)
[2018-04-04] MEDS: FISH OIL PO SCH (11:11)
[2018-04-04] MEDS: Tiotropium CAP.INH* CAP.INH/18 MCG (USE ORDER SET !) INH SCH (11:16)
[2018-04-04] MEDS: Ramipril CAP* 2.5 MG PO SCH (11:29)
[2018-04-04] MEDS: busPIRone TAB* 15 MG PO SCH ×2 (11:32→21:42)
[2018-04-04 12:21] LABS: TSH (Thyroid Stimulating Horm) 0.11 mcIU/mL (0.34-5.60)
[2018-04-04] MEDS: Acetylcysteine CAP (RENAL)* 600 MG PO SCH ×2 (12:27→21:42)
--- NOTE | 2018-04-04 13:53 | HP ---
CC: Dr. Hayden HISTORY AND PHYSICAL: DATE OF ADMISSION: 04/04/18 CHIEF COMPLAINT: Cough. HISTORY OF PRESENT ILLNESS: Ms. Arevalo is a 77-year-old woman with a history of asthma, who has been s ick for 3 weeks with a cough. She reports being seen by her primary care doctor who told her she marquis s not have pneumonia at that point and no antibiotics were given. Today, she developed a fever and a s instructed she called her primary care office asking for antibiotics. This did not get accomplishe d throughout the day today and this caused some frustration. The patient developed some confusion th is evening on top of the increasing fever and cough and she was brought to the emergency department b y her daughter. The patient reports a temperature of 101.8 at home. The patient states the cough is nonproductive. There is no chest pain or palpitations. 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 She also has a history of breast cancer with lumpectomy in the past, osteoarth ritis, hypertension, osteoporosis, hypothyroidism, history of alcohol abuse, anxiety, depression and one psychiatric admission when there was family stress. PAST SURGICAL HISTORY: Includes lumpectomy and thyroidectomy. MEDICATIONS ON ADMISSION: 1. Albuterol nebulizer q.6 hours p.r.n. 2. Budesonide/formoterol 80/4.5 two puffs inhaled b.i.d. 3. BuSpar 15 mg p.o. b.i.d. 4. Cetirizine 10 mg p.o. q.a.m. 5. Prolia 60 mg subcu q.6 months. 6. TriCor 145 mg p.o. q.p.m. 7. Lasix 20 mg p.o. q.a.m. 8. Levothyroxine 175 mcg p.o. q.a.m. 9. Multivitamin 1 tab p.o. daily. 10. Fish oil 1 tab p.o. daily. 11. Omeprazole 20 mg p.o. q.a.m. 12. Seroquel 100 mg p.o. q.h.s. 13. Altace 2.5 mg p.o. q.a.m. 14. Risperidone 0.5 mg p.o. q.a.m. 15. Sertraline 100 mg p.o. b.i.d. 16. Zocor 40 mg p.o. q.h.s. 17. Spiriva 2 inhalations daily. 18. Zolpidem 10 mg p.o. q.h.s. p.r.n. insomnia. ALLERGIES: ASPIRIN and BETA-BLOCKERS. SOCIAL HISTORY: She is a retired nurse. She is . She has 2 children. Her daughter, Brandi garza, is her healthcare proxy. She quit tobacco 32 years ago. Drinks alcohol, 1 drink per day. No rec reational drugs. FAMILY HISTORY: Notable for sister with breast cancer, mother and father with alcoholism. REVIEW OF SYSTEMS: The patient denies any anorexia, but has had weakness. The patient denies any ch est pain or palpitations. The patient denies any hemoptysis, but does feel short of breath. The pat ient denies any diarrhea or abdominal pain, but has had 1 episode of vomiting. Remainder of 14-point review of systems is negative other than mentioned in the HPI. PHYSICAL EXAMINATION GENERAL: She is alert, in no acute distress. VITAL SIGNS: 37.6, pulse 94, respirations 31 to 35, O2 sats 89% to 95%, blood pressure is 119/68. HEENT: Head is normocephalic, atraumatic. Sclerae anicteric. Pupils equal, round, reactive to ligh t and accommodation. Oropharynx is moist. No lesions. NECK: No JVD. No carotid bruits. No thyromegaly. LUNGS: There are rales in the right anterior chest. There are expiratory wheezes bilaterally. HEART: Tachycardic, regular. No murmurs. ABDOMEN: Soft. There is tenderness in right upper quadrant. Positive bowel sounds. No masses. EXTREMITIES: No peripheral edema. Dorsalis pedis pulses are 2+ bilaterally. NEUROLOGIC: Cranial nerves II through XII are intact. Motor strength is 5/5 throughout. Deep tendo n reflexes are symmetric. DIAGNOSTIC STUDIES/LAB DATA: Sodium 133, potassium 4.0, chloride 101, bicarb 26, BUN 28, creatinine 0.89, glucose 131. Calcium 9.0. Albumin 3.9, AST 35, ALT 34, bilirubin 1.1. INR 1.07. Lactic aci d 0.7. White count 9.7, hemoglobin 11.5, hematocrit 34%, platelets 187. Influenza swab was negative . EKG shows normal sinus rhythm and mild QT prolongation. Chest x-ray shows a right middle lobe infilt rate. ASSESSMENT AND PLAN: A 77-year-old woman with asthma exacerbation and community- acquired pneumonia. She will be admitted to the hospital due to hypoxia and her age. She will be treated with azithrom ycin and ceftriaxone for community-acquired pneumonia. For asthma exacerbation, she will continue on her IV Solu-Medrol that was started in the emergency department and her nebulizers as well. For the right upper quadrant pain, differential would include liver disease, gallbladder disease, or gastroenteritis. The patient will have gallbladder ultrasound in the morning. Code status is discussed with the patient. She wants to be do not resuscitate, do not intubate. A M OLST form is filled out and the patient will sign it. The patient is high risk for DVT given her age and lung disease. She will have sequential compressio n devices and Lovenox while she is here in the hospital. For hypothyroidism, we will continue her Synthroid and recheck her TSH in the morning. [id number]/[facility] #: [id number]
[2018-04-04] MEDS ORDERED: Albuterol 2.5 MG/3 ML NEB.SOL* (0.083%) INH PRN (14:53)
[2018-04-04] MEDS: guaiFENesin/CODIEN 100MG-10MG* 5 ML UDC PO SCH ×2 (15:34→21:42)
[2018-04-04] MEDS: Albuterol/Ipratropium NEB.SOL* Albuterol 2.5 MG/Ipratropium 0.5 MG 3 ML INH SCH ×3 (15:58→23:22)
[2018-04-04] MEDS: cefTRIAXone(*) 1 GM in NS 0.9% 50 ML* 50 ML IVPB SCH (17:33)
[2018-04-04 17:54] LABS: Urine Appearance Cloudy; Urine Bacteria 1+ (Absent); Urine Bilirubin Negative (Negative); Urine Blood Negative (Negative); Urine Color Amber; Urine Glucose Negative (Negative); Urine Ketones Negative (Negative); Urine Nitrite Negative (Negative); Urine Protein Negative (Negative); Urine Red Blood Cell Trace(0-2/hpf) (Absent); Urine Specific Gravity 1.025 (1.010-1.030); Urine Urobilinogen Positive (Negative); Urine White Blood Cell 1+(6-10/hpf) (Absent)
[2018-04-04] MEDS: Fenofibrate(NF) 145 MG TAB PO SCH (18:01)
[2018-04-04] MEDS: Azithromycin IV(*) 250 MG in NS 0.9% 250 ML* 250 ML IVPB SCH (18:01)
[2018-04-04] MEDS: Atorvastatin* 20 MG TAB PO SCH (18:06)
--- NOTE | 2018-04-04 18:33 | PN ---
Subjective Date of Service: 04/04/18 Interval History: Pt seen and examined. Meds and labs reviewed. CC: RUQ abd pain and tenderness along with cough and SOB now improved. Now able to produce sputum. ROS: Denied GIRON/dizziness, F/C, N/V, CP, abd pain, diarrhea, constipation, dysuria, myalgias, arthralgias, throat pain, and new skin lesions. The rest of the 14 point ROS are unremarkable. PHYSICAL EXAM: GEN APPEARANCE: Awake, not in acute distress HEENT: NC/AT, PERRLA, moist oral mucosa, (-) throat erythema NECK: Soft, supple, (-) cervical LAD, (-)JVD HEART: S1S2 WNL, RRR, No MRG CHEST: CTA, BL, GAE, No W/R/R ABD: Soft, ND/RUQ tenderness, moderate palpation, NABS 4x Q EXT: No C/C/E SKIN: Warm to touch PSYCH: No active psychosis, hallucinations, depression, SI/HI Objective Active Medications: Acetylcysteine (Acetylcysteine Cap (Renal)*) 600 mg PO BID [facility] Stop: 04/06/18 21:01 Last Admin: 04/04/18 12:27 Dose: 600 mg Albuterol (Ventolin 2.5 Mg/3 Ml Neb.Sommer*) 2.5 mg INH Q2H PRN PRN Reason: SOB/WHEEZING Albuterol/Ipratropium (Duoneb (Albuterol 2.5 Mg/Ipratropium 0.5 Mg)) 1 neb INH [id number] AWAKE [facility] Last Admin: 04/04/18 17:58 Dose: 1 neb Atorvastatin Calcium (Lipitor*) 40 mg PO QPM [facility] Last Admin: 04/04/18 18:06 Dose: 40 mg Benzonatate (Tessalon Cap*) 100 mg PO Q4H PRN PRN Reason: COUGH Buspirone HCl (Buspar Tab *) 15 mg PO BID [facility] Last Admin: 04/04/18 11:32 Dose: 15 mg Enoxaparin Sodium (Lovenox(*)) 30 mg SUBCUT Q24H [facility] Fenofibrate (Tricor(Nf)) 145 mg PO QPM [facility]; Protocol Last Admin: 04/04/18 18:01 Dose: Not Given Furosemide (Lasix Tab*) 20 mg PO QAM [facility] Last Admin: 04/04/18 11:11 Dose: Not Given Guaifenesin/Codeine Phosphate (Robitussin Ac 100mg-10mg*) 5 ml PO TID [facility] Stop: 04/07/18 14:59 Last Admin: 04/04/18 15:34 Dose: 5 ml Ceftriaxone Sodium 1 gm/ (Sodium Chloride) 50 mls @ 200 mls/hr IVPB Q24H [facility] Last Admin: 04/04/18 17:33 Dose: 200 mls/hr Azithromycin 250 mg/ Sodium (Chloride) 250 mls @ 250 mls/hr IVPB Q24H [facility] Stop: 04/08/18 16:59 Last Admin: 04/04/18 18:01 Dose: 250 mls/hr Levothyroxine Sodium (Synthroid Tab*) 175 mcg PO DAILY@0600 [facility] Last Admin: 04/04/18 06:18 Dose: 175 mcg Mometasone Furoate/Formoterol Fumar (Dulera 100/5 Mdi*) 2 puff INH BID [facility] Last Admin: 04/04/18 08:39 Dose: 2 puff Multivitamins/Minerals (Theragran/Minerals Tab*) 1 tab PO DAILY [facility] Last Admin: 04/04/18 11:02 Dose: 1 tab Non-Formulary Medication (Omega3/Dha/Epa/Fish Oil/Vit D3 [Fish Oil-Vit D3 Softgel]) 1 cap PO DAILY [facility] Last Admin: 04/04/18 11:11 Dose: Not Given Nft(Risperidone [ Risperidone Odt] 0.5 Mg) 0.5 mg PO QAM [facility] Last Admin: 04/04/18 11:11 Dose: Not Given Omeprazole (Prilosec Cap*) 20 mg PO QAM@0730 [facility] Last Admin: 04/04/18 07:21 Dose: 20 mg Quetiapine Fumarate (Seroquel Tab*) 100 mg PO BEDTIME [facility] Ramipril (Altace Cap*) 2.5 mg PO QAM [facility] Last Admin: 04/04/18 11:29 Dose: Not Given Sertraline HCl (Zoloft*) 100 mg PO BID [facility] Last Admin: 04/04/18 11:05 Dose: 100 mg Tiotropium Amma (Spiriva Cap.Inh*) 1 cap INH 1200 [facility] Last Admin: 04/04/18 11:16 Dose: 1 cap Zolpidem Tartrate (Ambien Tab*) 10 mg PO BEDTIME PRN PRN Reason: INSOMNIA Vital Signs - 8 hr 04/04/18 04/04/18 04/04/18 11:36 15:48 15:58 Temperature 97.4 F 97.5 F Pulse Rate 94 90 90 Respiratory 16 18 Rate Blood Pressure 89/49 88/56 (mmHg) O2 Sat by Pulse 93 95 97 Oximetry 04/04/18 04/04/18 16:20 18:01 Temperature Pulse Rate 89 Respiratory 18 Rate Blood Pressure 92/56 (mmHg) O2 Sat by Pulse 98 Oximetry Oxygen Devices in Use Now: Nasal Cannula Result Diagrams: 04/03/18 23:16 04/03/18 23:16 Microbiology and Other Data: Microbiology 04/03/18 23:16 Influenza Types A,B Antigen - Final Nasopharyngeal Specimen received for Influenza A/B Molecular testing Assess/Plan/Problems-Billing Assessment: - Patient Problems (1) CAP (community acquired pneumonia) Current Visit: Yes Status: Acute Code(s): J18.9 - PNEUMONIA, UNSPECIFIED ORGANISM SNOMED Code(s): 263323969 Comment: -Reviewed CXR and agree with RML infiltrates, however, RLL infiltrates also present and maybe the reason for RUQ pain and tenderness due to referred pain -Flu screen (-) -Will send for legionella and P. pneumoniae urine Ag tests -Continue Rocephin and Azithromycin, abx day #2 -Continue to follow cultures -Place pt on codeine/guaifenesin and PRN Tessalon perles for breakthrough cough -Added Mucomyst to current regimen (2) RUQ pain Current Visit: Yes Status: Acute Code(s): R10.11 - RIGHT UPPER QUADRANT PAIN SNOMED Code(s): 029331071 Comment: #RUQ pain/tenderness: -Likely due to referred pain of RLL infiltrate as described above -RUQ U/S: S/P cholecystectomy; NAD -LFTs WNL (3) Hypothyroid Current Visit: No Status: Acute Code(s): E03.9 - HYPOTHYROIDISM, UNSPECIFIED SNOMED Code(s): 46731736 Comment: -TSH mildly suppressed but maybe due to acute PNA -Check FT4 in AM -Continue current synthroid regimen (4) Anxiety Current Visit: Yes Status: Acute Code(s): F41.9 - ANXIETY DISORDER, UNSPECIFIED SNOMED Code(s): 02668712 Comment: -Continue Buspirone (5) DVT prophylaxis Current Visit: Yes Status: Acute Code(s): KLN0637 - SNOMED Code(s): 162926898 Comment: -Changed Lovenox to low dose given advanced age Status and Disposition: -For PT eval
[2018-04-04] MEDS: QUEtiapine TAB* 100 MG PO SCH (21:43)
[2018-04-04] MEDS: Zolpidem TAB* 10 MG PO PRN (21:50)
[2018-04-04] MEDS: Benzonatate CAP* 100 MG PO PRN (22:52)
[2018-04-05] MEDS: guaiFENesin/CODIEN 100MG-10MG* 5 ML UDC PO SCH ×4 (02:25→21:31)
[2018-04-05] MEDS: Albuterol/Ipratropium NEB.SOL* Albuterol 2.5 MG/Ipratropium 0.5 MG 3 ML INH SCH ×4 (03:00→17:43)
[2018-04-05] MEDS: Benzonatate CAP* 100 MG PO PRN ×4 (04:42→21:31)
[2018-04-05] MEDS: Benzocaine/Menthol LOZ* 1 LOZENGE MT PRN ×2 (05:36→12:26)
[2018-04-05] MEDS: Enoxaparin(*) 30 MG/0.3 ML SYR SUBCUT SCH (05:36)
[2018-04-05] MEDS: Levothyroxine TAB* 175 MCG TAB PO SCH (05:36)
[2018-04-05] MEDS: Tiotropium CAP.INH* CAP.INH/18 MCG (USE ORDER SET !) INH SCH ×2 (06:07→10:26)
[2018-04-05] MEDS: Mometasone/Formoter 100/5 MDI INH SCH ×4 (06:07→21:18)
[2018-04-05] MEDS: OMEGA3 PO SCH (08:40)
[2018-04-05] MEDS: EPA PO SCH (08:40)
[2018-04-05] MEDS: [UNRECOGNIZED DRUG - OTHER] PO SCH (08:40)
[2018-04-05] MEDS: VIT D3 PO SCH (08:40)
[2018-04-05] MEDS: DHA PO SCH (08:40)
[2018-04-05] MEDS: FISH OIL PO SCH (08:40)
[2018-04-05] MEDS: Omeprazole CAP (NF) 20 MG CAP.DR PO SCH (08:51)
[2018-04-05] MEDS: Furosemide TAB* 20 MG PO SCH (08:51)
[2018-04-05] MEDS: Ramipril CAP* 2.5 MG PO SCH (08:51)
[2018-04-05] MEDS: Acetylcysteine CAP (RENAL)* 600 MG PO SCH ×2 (08:51→21:31)
[2018-04-05] MEDS: Multivitamins/Minerals TAB PO SCH (08:51)
[2018-04-05] MEDS: Sertraline* 100 MG TAB PO SCH ×2 (08:51→21:31)
[2018-04-05] MEDS: busPIRone TAB* 15 MG PO SCH ×2 (08:51→21:31)
[2018-04-05 10:41] LABS: ABS Basophils 0 10^3/ul (0-0.2); ABS Eosinophils 0 10^3/ul (0-0.6); ABS Lymphocytes 0.7 10^3/ul (1.0-4.8); ABS Monocytes 0.8 10^3/ul (0-0.8); ABS Neutrophils 6.2 10^3/ul (1.5-7.7); ABS Nucleated RBC 0 10^3/ul; Eosinophil % 0 %; Hematocrit 33 % (35-47); Lymphocyte % 8.8 %; Mean Corpuscular HGB Conc 33 g/dl (31-36); Mean Corpuscular Hemoglobin 31 pg (27-31); Mean Corpuscular Volume 92 fL (80-97); Mean Platelet Volume 7.6 fL (7.4-10.4); Nucleated Red Blood Cells % 0.1; Platelet Count 207 10^3/ul (150-450); Red Blood Count 3.59 10^6/ul (4.00-5.40); Red Cell Distribution Width 14 % (10.5-15); White Blood Count 7.7 10^3/ul (3.5-10.8)
[2018-04-05 10:57] LABS: Albumin 3.2 g/dL (3.2-5.2); Globulin 3.1 g/dL (2-4); Indirect Bilirubin 0.3 mg/dL (0.3-1.0); Magnesium 1.9 mg/dL (1.9-2.7); Phosphorus 2.3 mg/dL (2.5-5.0); Total Bilirubin 0.4 mg/dL (0.2-1.0); Total Protein 6.3 g/dL (6.4-8.9)
[2018-04-05] MEDS ORDERED: predniSONE TAB* 20 MG PO STA (15:11)
--- NOTE | 2018-04-05 15:29 | PN ---
Subjective Date of Service: 04/05/18 Interval History: Pt seen and examined. Meds and labs reviewed. CC: Cough ROS: Denied GIRON/dizziness, F/C, N/V, CP, SOB, sputum production, abd pain, diarrhea, constipation, dysuria, myalgias, arthralgias, throat pain, and new skin lesions. The rest of the 14 point ROS are unremarkable. PHYSICAL EXAM: GEN APPEARANCE: Awake, not in acute distress HEENT: NC/AT, PERRLA, moist oral mucosa, (-) throat erythema NECK: Soft, supple, (-) cervical LAD, (-)JVD HEART: S1S2 WNL, RRR, No MRG CHEST: CTA, BL, GAE, No W/R/R ABD: Soft, ND/NT, NABS 4x Q EXT: No C/C/E SKIN: Warm to touch PSYCH: No active psychosis, hallucinations, depression, SI/HI Objective Active Medications: Acetylcysteine (Acetylcysteine Cap (Renal)*) 600 mg PO BID [facility] Stop: 04/06/18 21:01 Last Admin: 04/05/18 08:51 Dose: 600 mg Albuterol (Ventolin 2.5 Mg/3 Ml Neb.Sommer*) 2.5 mg INH Q2H PRN PRN Reason: SOB/WHEEZING Albuterol/Ipratropium (Duoneb (Albuterol 2.5 Mg/Ipratropium 0.5 Mg)) 1 neb INH [id number] AWAKE [facility] Last Admin: 04/05/18 12:18 Dose: 1 neb Atorvastatin Calcium (Lipitor*) 40 mg PO QPM [facility] Last Admin: 04/04/18 18:06 Dose: 40 mg Benzonatate (Tessalon Cap*) 100 mg PO Q4H PRN PRN Reason: COUGH Last Admin: 04/05/18 12:26 Dose: 100 mg Buspirone HCl (Buspar Tab *) 15 mg PO BID [facility] Last Admin: 04/05/18 08:51 Dose: 15 mg Enoxaparin Sodium (Lovenox(*)) 30 mg SUBCUT Q24H [facility] Last Admin: 04/05/18 05:36 Dose: 30 mg Fenofibrate (Tricor(Nf)) 145 mg PO QPM [facility]; Protocol Last Admin: 04/04/18 18:01 Dose: Not Given Furosemide (Lasix Tab*) 20 mg PO QAM [facility] Last Admin: 04/05/18 08:51 Dose: Not Given Guaifenesin/Codeine Phosphate (Robitussin Ac 100mg-10mg*) 5 ml PO Q6H [facility] Stop: 04/08/18 02:59 Last Admin: 04/05/18 14:53 Dose: 5 ml Ceftriaxone Sodium 1 gm/ (Sodium Chloride) 50 mls @ 200 mls/hr IVPB Q24H [facility] Last Admin: 04/04/18 17:33 Dose: 200 mls/hr Azithromycin 250 mg/ Sodium (Chloride) 250 mls @ 250 mls/hr IVPB Q24H [facility] Stop: 04/08/18 16:59 Last Admin: 04/04/18 18:01 Dose: 250 mls/hr Levothyroxine Sodium (Synthroid Tab*) 175 mcg PO DAILY@0600 [facility] Last Admin: 04/05/18 05:36 Dose: 175 mcg Mometasone Furoate/Formoterol Fumar (Dulera 100/5 Mdi*) 2 puff INH BID [facility] Last Admin: 04/05/18 07:13 Dose: Not Given Multivitamins/Minerals (Theragran/Minerals Tab*) 1 tab PO DAILY [facility] Last Admin: 04/05/18 08:51 Dose: 1 tab Non-Formulary Medication (Omega3/Dha/Epa/Fish Oil/Vit D3 [Fish Oil-Vit D3 Softgel]) 1 cap PO DAILY [facility] Last Admin: 04/05/18 08:40 Dose: Not Given Omeprazole (Prilosec Cap*) 20 mg PO QAM@0730 [facility] Last Admin: 04/05/18 08:51 Dose: 20 mg Prednisone (Deltasone Tab*) 30 mg PO ONCE ONE Stop: 04/06/18 09:01 Quetiapine Fumarate (Seroquel Tab*) 100 mg PO BEDTIME [facility] Last Admin: 04/04/18 21:43 Dose: 100 mg Ramipril (Altace Cap*) 2.5 mg PO QAM [facility] Last Admin: 04/05/18 08:51 Dose: 2.5 mg Risperidone (Risperdal-M Tab *) 0.5 mg PO QAM [facility] Sertraline HCl (Zoloft*) 100 mg PO BID [facility] Last Admin: 04/05/18 08:51 Dose: 100 mg Throat Lozenges (Chloraseptic Hattie*) 1 hattie MT Q6H PRN PRN Reason: SORE THROAT Last Admin: 04/05/18 12:26 Dose: 1 hattie Tiotropium Udall (Spiriva Cap.Inh*) 1 cap INH 1200 [facility] Last Admin: 04/05/18 10:26 Dose: Not Given Zolpidem Tartrate (Ambien Tab*) 10 mg PO BEDTIME PRN PRN Reason: INSOMNIA Last Admin: 04/04/18 21:50 Dose: 10 mg Vital Signs - 8 hr 04/05/18 04/05/18 04/05/18 07:39 08:00 08:09 Temperature 98.3 F Pulse Rate 91 92 Respiratory 18 18 Rate Blood Pressure 116/54 (mmHg) O2 Sat by Pulse 92 96 Oximetry 04/05/18 04/05/18 12:04 12:18 Temperature 98.0 F Pulse Rate 95 90 Respiratory 20 14 Rate Blood Pressure 113/59 (mmHg) O2 Sat by Pulse 95 93 Oximetry Oxygen Devices in Use Now: Nasal Cannula Result Diagrams: 04/05/18 10:17 04/03/18 23:16 Microbiology and Other Data: Microbiology 04/03/18 23:16 Influenza Types A,B Antigen - Final Nasopharyngeal Specimen received for Influenza A/B Molecular testing Assess/Plan/Problems-Billing Assessment: - Patient Problems (1) CAP (community acquired pneumonia) Current Visit: Yes Status: Acute Code(s): J18.9 - PNEUMONIA, UNSPECIFIED ORGANISM SNOMED Code(s): 293488140 Comment: -Reviewed CXR and agree with RML infiltrates, however, RLL infiltrates also present and maybe the reason for RUQ pain and tenderness due to referred pain -Flu screen (-) -Will send for legionella and P. pneumoniae urine Ag tests -Continue Rocephin and Azithromycin, abx day #2 -Continue to follow cultures -Continue codeine/guaifenesin and PRN Tessalon perles for breakthrough cough -Continue Mucomyst to current regimen (2) Cough Current Visit: Yes Status: Acute Code(s): R05 - COUGH SNOMED Code(s): 16208082 Comment: -Despite antitussives and mucolytics, pt still continues to complain of cough -Despite improving PNA, given qSOFA on admission =2, as well as persistent cough that may be due to mild RAD, will give low dose Prednisone at 40 mg today to rapidly taper to 30 mg tomorrow and to continue rapid taper to off in 5 days -For repeat CXR given only mildly elevated BNP, w/c could just be due to PNA but will eval for development of fluid overload -Please see above discussion (3) RUQ pain Current Visit: Yes Status: Acute Code(s): R10.11 - RIGHT UPPER QUADRANT PAIN SNOMED Code(s): 560968306 Comment: #RUQ pain/tenderness: -Resolved -Likely due to referred pain of RLL infiltrate as described above -RUQ U/S: S/P cholecystectomy; NAD -LFTs WNL (4) Hypothyroid Current Visit: No Status: Acute Code(s): E03.9 - HYPOTHYROIDISM, UNSPECIFIED SNOMED Code(s): 31326522 Comment: -TSH only mildly suppressed -FT4 WNL -Subclinical hyperthyroidism likely due to above CAP and will defer to repeat TFTs with PCP in 6 wks. -Continue current synthroid regimen (5) Anxiety Current Visit: Yes Status: Acute Code(s): F41.9 - ANXIETY DISORDER, UNSPECIFIED SNOMED Code(s): 65054224 Comment: -Continue Buspirone (6) DVT prophylaxis Current Visit: Yes Status: Acute Code(s): MTG9573 - SNOMED Code(s): 567880401 Comment: -Changed Lovenox to low dose given advanced age Status and Disposition: -Appreciate PT input -D/C Home w/home PT when ready; possibly in AM -Awaiting repeat CXR today
[2018-04-05] MEDS: cefTRIAXone(*) 1 GM in NS 0.9% 50 ML* 50 ML IVPB SCH (17:20)
[2018-04-05] MEDS: Atorvastatin* 20 MG TAB PO SCH (17:53)
[2018-04-05] MEDS: Fenofibrate(NF) 145 MG TAB PO SCH (17:53)
[2018-04-05] MEDS: Azithromycin IV(*) 250 MG in NS 0.9% 250 ML* 250 ML IVPB SCH (17:54)
[2018-04-05] MEDS: QUEtiapine TAB* 100 MG PO SCH (21:31)
[2018-04-05] MEDS: Zolpidem TAB* 10 MG PO PRN (21:31)
[2018-04-06] MEDS: Albuterol/Ipratropium NEB.SOL* Albuterol 2.5 MG/Ipratropium 0.5 MG 3 ML INH SCH ×3 (01:43→12:01)
[2018-04-06] MEDS: guaiFENesin/CODIEN 100MG-10MG* 5 ML UDC PO SCH ×3 (04:00→14:57)
[2018-04-06] MEDS: Enoxaparin(*) 30 MG/0.3 ML SYR SUBCUT SCH (06:20)
[2018-04-06] MEDS: Levothyroxine TAB* 175 MCG TAB PO SCH (06:20)
[2018-04-06 07:04] LABS: ABS Basophils 0 10^3/ul (0-0.2); ABS Eosinophils 0 10^3/ul (0-0.6); ABS Lymphocytes 0.6 10^3/ul (1.0-4.8); ABS Monocytes 0.6 10^3/ul (0-0.8); ABS Neutrophils 4.5 10^3/ul (1.5-7.7); ABS Nucleated RBC 0 10^3/ul; Eosinophil % 0.1 %; Hematocrit 32 % (35-47); Hemoglobin 10.7 g/dl (12.0-16.0); Lymphocyte % 10.6 %; Mean Corpuscular HGB Conc 34 g/dl (31-36); Mean Corpuscular Hemoglobin 31 pg (27-31); Mean Corpuscular Volume 91 fL (80-97); Mean Platelet Volume 7.6 fL (7.4-10.4); Nucleated Red Blood Cells % 0; Platelet Count 209 10^3/ul (150-450); Red Blood Count 3.44 10^6/ul (4.00-5.40); Red Cell Distribution Width 14 % (10.5-15); White Blood Count 5.6 10^3/ul (3.5-10.8)
[2018-04-06 07:22] LABS: BUN/Creatinine Ratio 58.9 (8-20); Calcium 8.3 mg/dL (8.6-10.3); EGFR Non-African American 104.7 (>60)
[2018-04-06] MEDS: Mometasone/Formoter 100/5 MDI INH SCH (07:37)
[2018-04-06] MEDS: busPIRone TAB* 15 MG PO SCH (07:52)
[2018-04-06] MEDS: Ramipril CAP* 2.5 MG PO SCH (07:52)
[2018-04-06] MEDS: Furosemide TAB* 20 MG PO SCH (07:52)
[2018-04-06] MEDS: Benzonatate CAP* 100 MG PO PRN ×2 (07:52→14:57)
[2018-04-06] MEDS: Multivitamins/Minerals TAB PO SCH (07:53)
[2018-04-06] MEDS: Sertraline* 100 MG TAB PO SCH (07:53)
[2018-04-06] MEDS: Omeprazole CAP (NF) 20 MG CAP.DR PO SCH (07:53)
[2018-04-06] MEDS: Acetylcysteine CAP (RENAL)* 600 MG PO SCH (07:53)
[2018-04-06] MEDS: VIT D3 PO SCH (08:00)
[2018-04-06] MEDS: FISH OIL PO SCH (08:00)
[2018-04-06] MEDS: EPA PO SCH (08:00)
[2018-04-06] MEDS: DHA PO SCH (08:00)
[2018-04-06] MEDS: OMEGA3 PO SCH (08:00)
[2018-04-06] MEDS ORDERED: risperiDONE-M * 1 MG TAB.ORADIS PO SCH (09:00)
[2018-04-06] MEDS ORDERED: predniSONE TAB* 10 MG PO ONE (09:00)
[2018-04-06] MEDS: Tiotropium CAP.INH* CAP.INH/18 MCG (USE ORDER SET !) INH SCH (11:59)
[2018-04-06 15:29] VITALS: BP 101/56
[2018-04-06] MEDS ORDERED: Atorvastatin* 20 MG TAB PO SCH (18:00)
--- NOTE | 2018-04-07 05:08 | DS ---
DISCHARGE SUMMARY: DATE OF ADMISSION: 04/04/18 DATE OF DISCHARGE: 04/06/18 ADMITTING PROVIDER: Henrik Potter MD. ATTENDING PHYSICIAN ON THE DAY OF DISCHARGE: Deon Nunez MD. PRIMARY CARE PHYSICIAN: Dr. Hayden. CHIEF COMPLAINT: Cough x3 weeks and fever. PRINCIPAL DIAGNOSES: 1. Community-acquired pneumonia. 2. Diastolic CHF exacerbation. 3. Chronic asthma exacerbation. 4. Acute hypoxic respiratory failure secondary to the first 3 diagnoses. HISTORY OF PRESENT ILLNESS/HOSPITAL COURSE: Ms. Arevalo is a 77-year-old female with a past medical history of asthma, Samter's triad, breast cancer, status post lumpectomy, osteoarthritis, hypertension, osteoporosis, hypothyroidism, anxiety, depression, and alcohol abuse. Please see H and P by Dr. Henrik Potter for full details. She complained of 3 weeks of cough and then, on the day of admission, developed a fever. She reported a temperature of 101.8 at home. The cough was nonproductive. Our initial workup was significant for a chest x- ray, which was concerning for a possible right middle lobe infiltrate. She was started on azithromycin and ceftriaxone for potential community-acquired pneumonia. She was continued on IV Solu-Medrol for her wheezing and suspected asthma exacerbation. She had been complaining of some right upper quadrant pain and had a liver ultrasound, which demonstrated normal ultrasound in a patient with history of cholecystectomy. Her oxygen requirement improved, but she still was requiring 2 L with ambulation on the day of discharge and this was set up through [facility]. She had a BNP checked on hospital day #2, which was elevated at 221, and her second chest x-ray that day was more consistent with mild pulmonary edema, possibly with infiltrate at the left lower lung. The patient was feeling well and considered stable for discharge with continued antibiotic therapy. She was evaluated by Physical Therapy on the day prior to discharge and was able to walk 60 feet with only nearby supervision. She had negative Strep and Legionella urine antigens. Urine culture was negative, less than 1000 CFU/mL. Blood cultures were negative x2 days and flu swabs were negative. DISCHARGE MEDICATIONS: Include: 1. Albuterol 1 puff inhaled q.6 hours p.r.n. 2. Augmentin 875 mg p.o. b.i.d. for 10 more days. 3. Azithromycin 250 mg p.o. daily for 3 more days. 4. Benzonatate capsule 100 mg p.o. q.4 hours p.r.n. (new). 5. Symbicort 80/4.5, two puffs inhaled b.i.d. 6. BuSpar 15 mg p.o. b.i.d. 7. Cetirizine 10 mg p.o. q.a.m. 8. Prolia 60 mg subcutaneous every 6 months. 9. Fenofibrate 145 mg p.o. q.p.m. 10. Lasix 20 mg p.o. daily p.r.n. 11. Robitussin 5 mg p.o. q.6 hours (new). 12. Levothyroxine 175 mcg p.o. daily. 13. Singulair 10 mg p.o. daily. 14. Multivitamin tab, 1 tab p.o. daily. 15. Fish oil with vitamin D3 softgel, 1 capsule p.o. daily. 16. Omeprazole 20 mg p.o. q.a.m. daily. 17. Seroquel 100 mg p.o. at bedtime. 18. Ramipril 2.5 mg p.o. q. a.m. 19. Risperidone 0.5 mg p.o. q. a.m. 20. Sertraline 100 mg p.o. b.i.d. 21. Simvastatin 40 mg p.o. q.p.m. 22. Spiriva 2 puffs inhaled at noon. 23. Ambien 10 mg p.o. at bedtime. FOLLOWUP: Please follow up with Dr. Lisandro Hayden within 7 days of discharge. She is being set up with [facility] for acute hypoxic respiratory failure secondary to community-acquired pneumonia, acute on chronic asthma exacerbation , and diastolic congestive heart failure exacerbation. TIME SPENT ON DISCHARGE: 45 minutes. [id number]/[facility] #: [id number] MTDTerry
== END 2018-04-06 16:54 | disposition home or self-care (01) | DRG 193 ==
LOC: ED 21:17 → MEDTELE 04-04 04:37
PROVIDERS: ADMIT Internal Medicine; ATTEND Internal Medicine
DX: J18.1 Lobar pneumonia, unspecified organism (principal); I50.33 Acute on chronic diastolic (congestive) heart failure; J96.01 Acute respiratory failure with hypoxia; J45.901 Unspecified asthma with (acute) exacerbation; M19.90 Unspecified osteoarthritis, unspecified site; I11.0 Hypertensive heart disease with heart failure; M81.0 Age-related osteoporosis without current pathological fracture; E03.9 Hypothyroidism, unspecified; F41.9 Anxiety disorder, unspecified; F32.9 Major depressive disorder, single episode, unspecified; I45.81 Long QT syndrome; Z66 Do not resuscitate; Z90.49 Acquired absence of other specified parts of digestive tract; Z99.81 Dependence on supplemental oxygen; Z88.8 Allergy status to other drugs, medicaments and biological substances; Z82.49 Family history of ischemic heart disease and other diseases of the circulatory system; Z85.3 Personal history of malignant neoplasm of breast; Z72.89 Other problems related to lifestyle; Z87.891 Personal history of nicotine dependence; Z80.3 Family history of malignant neoplasm of breast; Z81.1 Family history of alcohol abuse and dependence
CPT/HCPCS: 36415; 71045; 71046; 76705; 80048; 80053; 80076; 81003; 81015; 83605; 83735; 83880; 84100; 84439; 84443; 84484; 85025; 85610; 87040; 87086; 87899; 93005; 94640; 99284; A9270-GY; G8978-GP-CJ; G8979-GP-CI; J0456; J0696; J1650; J2930; J7512; J7611

== ENCOUNTER 2018-08-24 12:41 | Emergency (ER) | payer MEDICARE, OTHER ==
[2018-08-24 12:57] VITALS: BP 147/76
[2018-08-24] MEDS ORDERED: Albuterol/Ipratropium NEB.SOL* Albuterol 2.5 MG/Ipratropium 0.5 MG 3 ML INH ONE (13:00)
--- NOTE | 2018-08-24 13:23 | UC ---
Respiratory Complaint HPI - HPI Summary HPI Summary: others in the house with bronchititis patient has a history of COPD quit smoking 25 years ago---today day b2 of worsening wheezing and sob no fevers - History of Current Complaint Chief Complaint: UCGeneralIllness Stated Complaint: COUGH Time Seen by Provider: 08/24/18 13:00 Hx Obtained From: Patient ?: No Onset/Duration: Sudden Onset, Lasting Days - 2, Worse Since - today Timing: Constant Pain Intensity: 0 Character: Cough: Productive Aggravating Factors: Exertion Alleviating Factors: Bronchodilator Associated Signs And Symptoms: Positive: Dyspnea, Wheezing, URI, Nasal Congestion - Allergies/Home Medications Allergies/Adverse Reactions: Allergies Allergy/AdvReac Type Severity Reaction Status Date / Time aspirin Allergy Anaphylatic Verified 08/24/18 12:57 Shock Beta-Blockers Allergy Anaphylatic Verified 08/24/18 12:57 (Beta-Adrenergic Bloc Shock NSAIDS (Non-Steroidal Allergy Anaphylatic Verified 08/24/18 12:57 Anti-Inflamma Shock Home Medications: Home Medications Anastrozole [Arimidex] 1 mg PO DAILY 08/24/18 [History Confirmed 08/24/18] Calcitriol CAP* [Rocaltrol CAP*] 0.25 mcg PO DAILY 08/24/18 [History Confirmed 08/24/18] Calcium Carbonate [Calcium] 2 cap PO DAILY 08/24/18 [History Confirmed 08/24/18] PMH/Surg Hx/FS Hx/Imm Hx Previously Healthy: No Endocrine History: Hypothyroidism, Dyslipidemia Respiratory History: Asthma Psychological History: Anxiety - Surgical History Surgical History: Yes Surgery Procedure, Year, and Place: shoulder, hip. thyroid. lumpectomy - bilateral. colycystectomy. hyterectomy. oophorectomy. sigmoidectomy. sinus surgeries - multiple - Family History Known Family History: Positive: Hypertension - Social History Occupation: Retired Lives: With Family Alcohol Use: Daily Alcohol Amount: 2 drinks daily Substance Use Type: None Smoking Status (MU): Former Smoker When Did the Patient Quit Smoking/Using Tobacco: 30 years ago - Immunization History Most Recent Influenza Vaccination: 2018 Most Recent Pneumonia Vaccination: 2017 Review of Systems All Other Systems Reviewed And Are Negative: Yes Constitutional: Positive: Negative Skin: Positive: Negative Eyes: Positive: Negative ENT: Positive: Negative Respiratory: Positive: Shortness Of Breath, Cough Cardiovascular: Positive: Negative Gastrointestinal: Positive: Negative Genitourinary: Positive: Negative Motor: Positive: Negative Neurovascular: Positive: Negative Musculoskeletal: Positive: Negative Neurological: Positive: Negative Psychological: Positive: Negative Is Patient Immunocompromised?: No Physical Exam Triage Information Reviewed: Yes Appearance: Well-Appearing, No Pain Distress, Well-Nourished Vital Signs: Initial Vital Signs Temp 97.5 F 08/24/18 12:48 Pulse 99 08/24/18 12:48 Resp 22 08/24/18 12:48 BP 147/76 08/24/18 12:48 Pulse Ox 94 08/24/18 12:48 Vital Signs Reviewed: Yes Eye Exam: Normal Eyes: Positive: Conjunctiva Clear ENT Exam: Normal ENT: Positive: Normal ENT inspection, Hearing grossly normal, Pharynx normal, TMs normal, Uvula midline. Negative: Nasal congestion, Trismus, Muffled voice, Hoarse voice, Sinus tenderness Dental Exam: Normal Neck exam: Normal Neck: Positive: Supple, Nontender, No Lymphadenopathy Respiratory Exam: Other Respiratory: Positive: Chest non-tender, No respiratory distress, Accessory muscle use, Wheezing Cardiovascular Exam: Normal Cardiovascular: Positive: RRR, No Murmur, Pulses Normal, Brisk Capillary Refill Musculoskeletal Exam: Normal Musculoskeletal: Positive: Strength Intact, ROM Intact, No Edema Neurological Exam: Normal Neurological: Positive: Alert, Muscle Tone Normal Psychological Exam: Normal Skin Exam: Normal Diagnostics - Radiology No standard instances Radiology Interpretation Completed By: Radiologist - hyperinflation consistent with copd Respiratory Course/Dx - Course Course Of Treatment: feels much better, increase aeration and decrease wheeze--will d/c with nebs, prednisone and zithromax---follow with pcp this week - Differential Dx/Diagnosis Provider Diagnosis: Hypertension, COPD exacerbation, Hypertension not at goal Discharge - Sign-Out/Discharge Documenting (check all that apply): Patient Departure All imaging exams completed and their final reports reviewed: No Studies - Discharge Plan Condition: Stable Disposition: HOME Prescriptions: Albuterol 2.5MG/3ML (0.083%)* [Ventolin 2.5 MG/3 ML NEB.KAI*] 2.5 mg INH Q4H PRN #120 neb.kai PRN Reason: Cough Azithromycin TAB* [Zithromax TAB (Z-ERENDIRA) 250 mg #6 tabs] 2 tab PO .TODAY, THEN 1 DAILY #1 erendira predniSONE [Prednisone 20 MG TAB] 20 mg PO DAILY #12 tablet Patient Education Materials: Acute Bronchitis (ED), COPD (Chronic Obstructive Pulmonary Disease) (ED), Hypertension (ED) Referrals: Lisandro Hayden MD [Primary Care Provider] - 2 Weeks - Billing Disposition and Condition Condition: STABLE Disposition: Home - Attestation Statements Provider Attestation: I was available for consult. This patient was seen by the GUNJAN. The patient was not presented to, seen by, or examined by me. -Giovana
[2018-08-24] MEDS ORDERED: predniSONE TAB* 20 MG PO ONE (13:28)
== END 2018-08-24 14:12 | disposition home or self-care (01) ==
LOC: UCEAST 12:41
DX: J44.1 Chronic obstructive pulmonary disease with (acute) exacerbation (principal); I10 Essential (primary) hypertension; Z87.891 Personal history of nicotine dependence; Z88.8 Allergy status to other drugs, medicaments and biological substances
CPT/HCPCS: 71046; 99213; A9270-GY; G0463; J7512

== ENCOUNTER 2018-11-11 13:00 | Emergency (ER) | payer MEDICARE, OTHER ==
[2018-11-11 13:53] VITALS: BP 123/71
--- NOTE | 2018-11-11 14:09 | UC ---
Hand/Wrist HPI - HPI Summary HPI Summary: is a 78-year-old female here with a right wrist injury. Patient was frantically on her blouse yesterday when it got caught in her bra. Patient reached behind her and quickly tried to [place]. Patient had instant sensation of pain on the medial aspect of her wrist. Patient has had limited range of motion her wrist since then. Patient is a numbness or tingling. Medications reviewed - History Of Current Complaint Chief Complaint: UCUpperExtremity Stated Complaint: RIGHT HAND INJURY Time Seen by Provider: 11/11/18 14:02 Hx Obtained From: Patient Onset/Duration: Sudden Onset Severity Initially: Severe Severity Currently: Severe Pain Intensity: 9 - Allergies/Home Medications Allergies/Adverse Reactions: Allergies Allergy/AdvReac Type Severity Reaction Status Date / Time aspirin Allergy Anaphylatic Verified 11/11/18 13:53 Shock Beta-Blockers Allergy Anaphylatic Verified 11/11/18 13:53 (Beta-Adrenergic Bloc Shock NSAIDS (Non-Steroidal Allergy Anaphylatic Verified 11/11/18 13:53 Anti-Inflamma Shock PMH/Surg Hx/FS Hx/Imm Hx Previously Healthy: Yes - Surgical History Surgical History: Yes Surgery Procedure, Year, and Place: shoulder, hip. thyroid. lumpectomy - bilateral. colycystectomy. hyterectomy. oophorectomy. sigmoidectomy. sinus surgeries - multiple - Family History Known Family History: Positive: Hypertension, Non-Contributory - Social History Alcohol Use: Daily Alcohol Amount: 2 drinks daily Substance Use Type: None Smoking Status (MU): Former Smoker When Did the Patient Quit Smoking/Using Tobacco: 30 years ago - Immunization History Most Recent Influenza Vaccination: 2018 Most Recent Pneumonia Vaccination: 2017 Review of Systems All Other Systems Reviewed And Are Negative: Yes Constitutional: Negative: Fever, Chills Skin: Negative: Rash Eyes: Negative: Blurred Vision ENT: Negative: Dental Pain Respiratory: Negative: Shortness Of Breath Cardiovascular: Negative: Chest Pain Physical Exam - Summary Physical Exam Summary: Vital Signs Reviewed: Yes A+Ox3, no distress Eyes: Conjunctiva Clear, PERRL. EOM intact and full ENT: Hearing grossly normal TM x 2 clear, moist, uvula midline, no exudate, no erythema Neck: Positive: Supple Respiratory: Positive: No respiratory distress, No accessory muscle use + CTA throughout no w/r Cardiovascular: RRR nl s1, s2 no m/r CBT <2 sec abd soft + BS nt/nd no guarding, no distension Musculoskeletal Exam: Right wrist with tenderness along the medial aspect. No snuffbox tenderness. Radial pulse 2+. Limited range of motion at the wrist. No proximal or distal tenderness. Neurological: Positive: Alert, + sensation throughout Psychological: Positive: Normal Response To Family Skin: no rash, no ecchymosis Vital Signs: Initial Vital Signs Temp 98.9 F 11/11/18 13:49 Pulse 81 11/11/18 13:49 Resp 18 11/11/18 13:49 BP 123/71 11/11/18 13:49 Pulse Ox 92 11/11/18 13:49 Hand/Wrist Course/Dx - Course Course Of Treatment: Patient is here with a right wrist sprain. Patient had a negative x-ray for fracture. Patient was given a splint here for comfort. Patient is encouraged Phan primary care doctor in one week for further evaluation if her symptoms persist. - Differential Dx/Diagnosis Differential Diagnosis/HQI/PQRI: Contusion, Dislocation, Fracture, Sprain, Strain Provider Diagnosis: Right wrist sprain Discharge - Sign-Out/Discharge Documenting (check all that apply): Patient Departure All imaging exams completed and their final reports reviewed: Yes - Discharge Plan Condition: Stable Disposition: HOME Prescriptions: Acetaminop/Codeine 30 MG TAB* [Tylenol/Codeine 30 MG TAB*] 1 tab PO Q12HR #8 tab MDD 2 tabs Patient Education Materials: Wrist Sprain (ED) Referrals: Lisandro Hayden MD [Primary Care Provider] - Additional Instructions: Please use your wrist splint as needed for comfort Please take Tylenol for pain Please follow up with her primary care doctor in 1 week for reevaluation - Billing Disposition and Condition Condition: STABLE Disposition: Home
== END 2018-11-11 14:50 | disposition home or self-care (01) ==
LOC: UCEAST 13:00
DX: S63.501A Unspecified sprain of right wrist, initial encounter (principal); X50.0XXA Overexertion from strenuous movement or load, initial encounter; Y93.89 Activity, other specified; Y92.013 Bedroom of single-family (private) house as the place of occurrence of the external cause; Y99.8 Other external cause status; Z87.891 Personal history of nicotine dependence
CPT/HCPCS: 99213; G0463

== ENCOUNTER 2019-05-20 06:10 | Day surgery (SDC) | payer MEDICARE, OTHER ==
[~2019-05-20 06:10] MED LIST: Buffered Lidocaine 1% SYRIN* 1 ML/SYRINGE INTRADERM ONE; Famotidine IV* 10 MG/ML 2 ML (20 mg) IV ONE; Lactated Ringers 1000 ML Bag* 1,000 ML IV SCH
[2019-05-20] MEDS ORDERED: Famotidine IV* 10 MG/ML 2 ML (20 mg) ONE (06:14)
[2019-05-20] MEDS ORDERED: ceFAZolin 2 GM in NS PREMIX(*) 2 GM/100 ML BAG IVPB ONE (06:20)
[2019-05-20] MEDS ORDERED: Lidocaine 1% INJ* 10 MG/ML 30 ML SDV ONE (07:05)
[2019-05-20] MEDS ORDERED: Bupivacaine 0.5% SDV PF* 30ML VIAL ONE (07:05)
[2019-05-20] MEDS ORDERED: fentaNYL* 50 MCG/ML 2 ML VIAL (100 MCG VIAL) ONE (07:26)
[2019-05-20] MEDS ORDERED: Midazolam* 1 MG/ML 2 ML VIAL (2 MG) ONE (07:26)
[2019-05-20] MEDS ORDERED: Dexamethasone IV* 4 MG/ML 1 ML (4 MG) ONE ×2 (07:33→07:45)
[2019-05-20] MEDS ORDERED: Acetaminophen IV 1GM/100ML * 100 ML ONE (07:38)
[2019-05-20] MEDS ORDERED: Ondansetron INJ* 2 MG/ML VIAL ONE (07:45)
[2019-05-20] MEDS ORDERED: Propofol* 10 MG/ML 20 ML BTL ONE (07:45)
[2019-05-20] MEDS ORDERED: Naloxone* 0.4 MG/ML 1 ML VIAL IV PRN (08:17)
[2019-05-20] MEDS ORDERED: DiMENhydriNATE IV* 50 MG/ML VIAL IV PUSH PRN (08:17)
[2019-05-20] MEDS ORDERED: Levalbuterol 0.63MG/3ML NEB* UNIT OF USE INH PRN (08:17)
[2019-05-20] MEDS ORDERED: oxyCODONE TAB* 5 MG TAB PO PRN (08:17)
[2019-05-20] MEDS ORDERED: fentaNYL* 50 MCG/ML 2 ML VIAL (100 MCG VIAL) IV PRN (08:17)
[2019-05-20] MEDS ORDERED: Ondansetron INJ* 2 MG/ML VIAL IV PRN (08:17)
[2019-05-20 09:45] VITALS: BP 120/70
--- NOTE | 2019-05-20 12:50 | OP ---
dATE OF OPERATION: 05/20/19 - [place] [facility] DATE OF : 38 SURGEON: Juan Benavidez DPM [employer] CAPTAIN: None. ANESTHESIA: MAC with local. PRE-OP DIAGNOSES: 1. Painful and severe bunion deformity, left foot. 2. Severely deformed and contracted and dislocated second left hammertoe in the left foot. PRE-OP DIAGNOSES: 1. Painful and severe bunion deformity, left foot. 2. Severely deformed and contracted and dislocated second left hammertoe in the left foot. OPERATIVE PROCEDURE: 1. Simple bunionectomy with extensor hallucis longus tendon lengthening, left foot. 2. Amputation of second left toe. PATHOLOGY: Degenerative bone and amputated second toe. HEMOSTASIS: Pneumatic ankle tourniquet. ESTIMATED BLOOD LOSS: Less than 20 cc. INDICATIONS: The patient with severe left forefoot pain and deformity, which is large and painful bunion causing pain when wearing shoes and when walking. She has rigidly dorsally and medially contracted and dislocated second left hammertoe. It causes pain when wearing any closed shoes and walking. She opts for surgery at this time to attempt to decrease the deformities and improve her ability to wear closed shoes and walk with less pain. DESCRIPTION OF PROCEDURE: The patient was brought to the operating room and placed on the operating table in supine position. The anesthesia department administered IV sedation and a peripheral nerve block was performed about the left foot with a 1:1 mixture of 1% lidocaine plain and 0.5% Marcaine plain. Left foot was prepped and draped in the usual fashion. The left foot was then exsanguinated with an Esmarch bandage and pneumatic ankle tourniquet was inflated to 250 mmHg about well- padded left ankle. Attention was directed to the dorsomedial aspect of the left great toe joint where a curvilinear incision was made. This was deepened through the subcutaneous tissues and care being taken to retract neurovascular structures and cauterize superficial bleeders as needed. An inverted L-capsular incision was made to allow for exposure of the great toe joint and distal first metatarsal. There was noted to be hypertrophic bone at the medial aspect. McGlamry elevator was used to free plantar lateral adhesions of the sesamoid apparatus. Dissection was carried into the first intermetatarsal space and the lateral release was performed. This being done and there was still some contracture and extensor hallucis brevis tendon was identified and transected. There still was significant contracture and so the extensor hallucis longus tendon sheath was incised and then a Z extensor tendon lengthening was performed to reduce contracture within the extensor hallucis longus tendon. The tendon was then secured with 4-0 Vicryl and the tendon sheath was closed after flushing the area with normal sterile saline with 4-0 Vicryl. The hypertrophic bone was resected with sagittal saw and a power bur was used to smooth the rough edges on the medial aspect of first metatarsal head. The surgical site was flushed with copious amounts of normal sterile saline. Medial capsulorrhaphy was performed resecting redundant medial capsule and holding the hallux in a rectus position, 2-0 Vicryl was used to close the periosteal and capsular tissues. Subcutaneous tissues were reapproximated with 4-0 Vicryl and skin was closed with 5-0 nylon. Attention was then directed to the second digit, where 2 semi-elliptical incisions were made at the respective base of the medial and lateral aspects of base of the second digit. Dissection was carried to the base of the digit where the tendons and capsular attachments to the base of the toe were transected to allow for amputation of the digit. The superficial bleeders were cauterized as needed. The surgical site was flushed with copious amounts of normal sterile saline. The deep fascia and then the subcutaneous tissues were closed in layers with 4-0 Vicryl and the skin was then closed with 5-0 nylon. The incisions were then dressed with Xeroform gauze, and a well-padded sterile mildly compressive dressing was applied with 4x4 gauze, Elizabeth, ABD pad, and some Webril, secured with light Coban wrap. Prior to full closure, the pneumatic ankle tourniquet had been deflated and a prompt hyperemic response was noted about all the remaining digits in the left foot. Having appeared to tolerate the procedure and anesthesia well, the patient was transported via cart from the operating room to Recovery in satisfactory condition with capillary refill less than 3 seconds to the remaining digits of the left foot. [id number]/[facility] #: [id number] [facility]erry
== END 2019-05-20 09:52 | disposition home or self-care (01) ==
LOC: OREAST 06:10
PROVIDERS: ATTEND Podiatrist Foot Surgery
DX: M21.612 Bunion of left foot (principal); M20.42 Other hammer toe(s) (acquired), left foot; I10 Essential (primary) hypertension; J44.9 Chronic obstructive pulmonary disease, unspecified; K21.9 Gastro-esophageal reflux disease without esophagitis; E03.9 Hypothyroidism, unspecified; M54.5 Low back pain; Z85.3 Personal history of malignant neoplasm of breast; F41.9 Anxiety disorder, unspecified; E78.00 Pure hypercholesterolemia, unspecified; M19.90 Unspecified osteoarthritis, unspecified site
CPT/HCPCS: 88305; 88311; J0690; J1100; J2250; J2405; J2704; J3010; J3490